=== PATIENT | male | born 1945 | race Caucasian/White ===

== ENCOUNTER 2017-10-05 11:09 | Inpatient (IN) | payer MEDICARE ==
--- NOTE | 2017-10-05 11:31 | ED Physician Documentation ---
History of Present Illness - Stated complaint Stated Complaint: DIFFICULTY BREATHING - Chief complaint Chief Complaint: Resp - Additonal information Additional information: hx from pt 71 male sick for 5 days with cough and diarrhea very SOA hypoxic upon arrival no travel no sick contacts no recent hospitalization Review of Systems Constitutional: reports: Fatigue. denies: Fever, Chills Cardiac: denies: Chest pain / pressure Respiratory: reports: Dyspnea, Cough GI: reports: Diarrhea. denies: Abdominal Pain, Nausea, Vomiting Endocrine: denies: Easy bruising / bleeding Immunocompromised: denies: Immunocompromised PD PAST MEDICAL HISTORY - Past Medical History Cardiovascular: Hypertension Respiratory: Sleep apnea, CPAP use Endocrine/Autoimmune: None GI: None : None HEENT: None Psych: None Musculoskeletal: None Derm: None - Past Surgical History Ortho: Other HEENT: Cataracts - Present Medications Home Medications: Ambulatory Orders Medication Instructions Recorded Confirmed Lisinopril [Zestril] 20 mg PO 06/16/16 Aspirin 10/05/17 Pravastatin [Pravachol] 10/05/17 - Allergies Allergies/Adverse Reactions: Allergies Allergy/AdvReac Type Severity Reaction Status Date / Time No Known Drug Allergies Allergy Verified 10/05/17 11:19 PD ED PE NORMAL - Vitals Vital signs reviewed: Yes - HEENT HEENT: Atraumatic - Neck Neck: Supple, no meningeal sign - Cardiac Cardiac: RRR (tachy) - Respiratory Respiratory: Other (dec red, tachypneic) - Abdomen Abdomen: Soft, Non tender - Extremities Extremities: No deformity, No edema, No calf tenderness / cord - Neuro Neuro: Alert and oriented X 3 Results - Vitals Vitals: Vital Signs - 24 hr 10/05/17 10/05/17 10/05/17 11:16 11:45 14:11 Temperature 36.6 C 37.2 C Heart Rate 105 H 96 103 H Respiratory 25 H 21 28 H Rate Blood Pressure 108/43 L 104/45 L 110/40 L O2 Saturation 85 L 96 94 10/05/17 16:22 Temperature Heart Rate 108 H Respiratory 25 H Rate Blood Pressure 107/54 L O2 Saturation 96 Oxygen O2 Source Room air Oxygen Flow Rate 4 - EKG (time done) 1126 Rate: Rate (enter#) (94) Rhythm: NSR QRS: Poor R wave progression Ischemia: Normal ST segments. No: ST elevation c/w ischemia - Labs Labs: Laboratory Tests 10/05/17 10/05/17 10/05/17 11:24 11:24 11:24 WBC 14.7 H RBC 4.50 L Hgb 14.9 Hct 42.7 MCV 95.0 H MCH 33.0 H MCHC 34.8 RDW 13.5 Plt Count 258 MPV 7.9 Neut # Not Reportable Lymph # Not Reportable Barber # Not Reportable Eos # Not Reportable Baso # Not Reportable Absolute Nucleated RBC Not Reportable Total Counted 100 Band Neuts % (Manual) 0 Abnorm Lymph % (Manual) 0 Nucleated RBC % Not Reportable Neutrophils # (Manual) 11.8 H Lymphocytes # (Manual) 1.6 Monocytes # (Manual) 1.2 H Eosinophils # (Manual) 0.0 Basophils # (Manual) 0.1 Differential Comment MANUAL DIFFERENTIAL Manual Slide Review Indicated Platelet Estimate NORMAL (130-450,000) Platelet Morphology NORMAL APPEARANCE RBC Morph Micro Appear NORMAL APPEARANCE Sodium 134 L Potassium 3.8 Chloride 100 L Carbon Dioxide 24 Anion Gap 10.0 BUN 44 H Creatinine 2.3 H Estimated GFR (MDRD) 28 L Glucose 132 H Lactic Acid Calcium 8.8 Troponin I B-Natriuretic Peptide 141 H Influenza A (Rapid) Influenza B (Rapid) 10/05/17 10/05/17 10/05/17 11:24 11:24 12:07 WBC RBC Hgb Hct MCV MCH MCHC RDW Plt Count MPV Neut # Lymph # Barber # Eos # Baso # Absolute Nucleated RBC Total Counted Band Neuts % (Manual) Abnorm Lymph % (Manual) Nucleated RBC % Neutrophils # (Manual) Lymphocytes # (Manual) Monocytes # (Manual) Eosinophils # (Manual) Basophils # (Manual) Differential Comment Manual Slide Review Platelet Estimate Platelet Morphology RBC Morph Micro Appear Sodium Potassium Chloride Carbon Dioxide Anion Gap BUN Creatinine Estimated GFR (MDRD) Glucose Lactic Acid 0.3 L Calcium Troponin I 0.09 B-Natriuretic Peptide Influenza A (Rapid) Negative Influenza B (Rapid) Negative - Rads (name of study) CXR Radiology: See rad report (NACPD) CT chest Radiology: See rad report (LLL opacities) PD MEDICAL DECISION MAKING - ED course ED course: acute illneess with cough SOA and diarrhea hypoxic CXR NACPD renal insuiff not new but GFR < 30 precluded CTA to eval for PE as cause no isotope for VQ per [employer] tech will get a non con CT gave a dose of lovenox to cover possibility of PE until work up can be completed CT non con shows LL opacity concerning for pna so will start ab and admit still rec pt get VQ as PE can also cause opacities d/w Dr Styles at 1550 Departure - Departure Disposition: 66 [facility] DC/Xfer Clinical Impression: Hypoxia Pneumonia Qualifiers: Pneumonia type: due to unspecified organism Laterality: left Lung location: lower lobe of lung Qualified Code(s): J18.1 - Lobar pneumonia, unspecified organism Chronic renal insufficiency Qualifiers: Chronic kidney disease stage: unspecified stage Qualified Code(s): N18.9 - Chronic kidney disease, unspecified Condition: Good
[2017-10-05 11:54] LABS: BASOPHILS % (AUTO) 0.5 %; EOSINOPHILS % (AUTO) 0.1 %; HGB - HEMOGLOBIN 14.9 g/dL (14.0-18.0); LYMPHOCYTES % (AUTO) 6.2 %; MEAN CORPUSCULAR HGB CONC 34.8 g/dL (32.0-36.0); MEAN PLATELET VOLUME 7.9 fL (7.4-11.4); MONOCYTES % (AUTO) 11.6 %; NEUTROPHILS % (AUTO) 81.6 %; PLT - PLATELET COUNT 258 10^3/uL (130-450); RED CELL DISTRIBUTION WIDTH 13.5 % (12.0-15.0); WHITE BLOOD COUNT 14.7 x10^3/uL (4.8-10.8)
[2017-10-05 12:05] LABS: CALCIUM 8.8 mg/dL (8.5-10.3); CREATININE 2.3 mg/dL (0.6-1.2)
[2017-10-05 12:27] LABS: ABNORMAL LYMPHS % (MANUAL) 0 %; BAND NEUTROPHILS % (MANUAL) 0 %
[2017-10-05 12:28] LABS: BASOPHILS # (MANUAL) 0.1 10^3/uL (0-0.1); BASOPHILS % (MANUAL) 1 %; DIFFERENTIAL COMMENT MANUAL DIFFERENTIAL; LYMPHOCYTES # (MANUAL) 1.6 10^3/uL (1.5-3.5); LYMPHOCYTES % (MANUAL) 11 %; MONOCYTES # (MANUAL) 1.2 10^3/uL (0.0-1.0); NEUTROPHILS # (MANUAL) 11.8 10^3/uL (1.5-6.6); NEUTROPHILS % (MANUAL) 80 %; PLATELET ESTIMATE, MANUAL NORMAL (130-450,000) (NORMAL); PLATELET MORPHOLOGY NORMAL APPEARANCE (NORMAL); RBC MORPHOLOGY (MULTIPLE) NORMAL APPEARANCE (NORMAL)
--- NOTE | 2017-10-05 13:18 | XRAY Report ---
EXAM: CHEST RADIOGRAPHY EXAM DATE: 10/05/2017 01:07 PM. CLINICAL HISTORY: Cough hypoxia. COMPARISON: None. TECHNIQUE: 2 views. FINDINGS: Lungs/Pleura: No focal opacities evident. Mild central interstitial prominence. No pleural effusion. No pneumothorax. Hyperinflation. Mediastinum: Heart and mediastinal contours are within normal limits. Other: None. IMPRESSION: No acute cardiopulmonary abnormality. Hyperinflation suggests COPD. [facility] Referring Provider Line: [phone] SITE ID: [id number]
[2017-10-05] MEDS ORDERED: ENOXAPARIN 100 MG/ML SYRINGE SUBQ STA (13:26)
--- NOTE | 2017-10-05 15:08 | CT Preliminary Report ---
Exam: CT CHEST W/O IMPRESSION: 1. COPD. Left lower lobe opacities concerning for infiltrates. 2. No pneumothorax or effusions. 3. Probable reactive mediastinal and hilar adenopathy. No bulky adenopathy. 4. Extensive coronary artery disease. No pericardial effusion or cardiac enlargement. [facility] SITE ID: [id number]
--- NOTE | 2017-10-05 15:14 | CT Report ---
EXAM: CT CHEST EXAM DATE: 10/05/2017 02:30 PM. CLINICAL HISTORY: Hypoxic. COMPARISONS: 10/05/2017. TECHNIQUE: Routine helical CT imaging was performed through the chest. IV contrast: None. Reconstruct ions: Coronal and sagittal. In accordance with CT protocol optimization, one or more of the following dose reduction techniques w ere utilized for this exam: automated exposure control, adjustment of mA and/or KV based on patient s ize, or use of iterative reconstructive technique. FINDINGS: Lungs/Pleura: At least moderate centrilobular and paraseptal emphysema noted. No pneumothorax or effu judy. Patchy left lower lobe opacities best seen on image 4, 63. 2 mm right upper lobe nodule best se en on image 4, 34. No lung mass. Moderate bilateral perihilar bronchial wall thickening. No endobronc hial lesion. Mediastinum: Diffuse atheromatous calcified plaques throughout the thoracic aorta without aneurysmal dilation. No mediastinal hematoma. No cardiac enlargement. Extensive coronary calcifications are pres ent. 1.1 cm subcarinal, 1.2 cm AP window and 1.1 cm right paratracheal nodes are noted. No bulky calixto opathy. No pericardial effusion. 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 No osteoblastic or osteolytic lesions appreciated. Visualized Abdomen: Unremarkable. Other: Homogeneous enhancement of the thyroid gland. No thyroid nodule or mass. No supraclavicular or axillary lymphadenopathy identified. IMPRESSION: 1. COPD. Left lower lobe opacities concerning for infiltrates. 2. No pneumothorax or effusions. 3. Probable reactive mediastinal and hilar adenopathy. No bulky adenopathy. 4. Extensive coronary artery disease. No pericardial effusion or cardiac enlargement. [facility] Referring Provider Line: [phone] SITE ID: [id number]
[2017-10-05] MEDS ORDERED: cefTRIAXone 1 GM in SODIUM CHLORIDE 0.9% MINIBAG 100 ML IV STA (15:35)
[2017-10-05] MEDS ORDERED: AZITHROMYCIN INJ 500 MG in SODIUM CHLORIDE 0.9% 250 ML IV STA (15:36)
[2017-10-05] MEDS ORDERED: ONDANSETRON 4 MG/2 ML VIAL IVP PRN ×2 (16:47→17:46)
[2017-10-05] MEDS ORDERED: ACETAMINOPHEN 325 MG TABLET PO PRN ×2 (16:47→17:46)
[2017-10-05] MEDS ORDERED: SODIUM CHLORIDE FLUSH 0.9% 10 ML SYRINGE IVP PRN ×2 (16:47→17:46)
[2017-10-05] MEDS ORDERED: ZOLPIDEM 5 MG TABLET PO PRN (16:47)
[2017-10-05] MEDS ORDERED: AZITHROMYCIN INJ 500 MG in SODIUM CHLORIDE 0.9% 250 ML IV SCH (17:00)
[2017-10-05] MEDS ORDERED: SODIUM CHLORIDE FLUSH 0.9% 10 ML SYRINGE IVP SCH (17:00)
[2017-10-05] MEDS ORDERED: SODIUM CHLORIDE 0.9% 1,000 ML IV SCH (17:00)
--- NOTE | 2017-10-05 17:26 | HISTORY & PHYSICAL EXAMINATION ---
Chief Complaint - Chief Complaint Chief Complaint: cough, shortness of breath History of Present Illness - Admitted From Admitted From:: ER - History Obtained From History obtained from: Pt - History of Present Illness HPI Comment/Other: Mr. Espino is 71 yrs old male with a PMH significant for HTN, CKD, sleep Apnea with CPAP, cigarette smoker, who present ER complaint of cough with sputum for one week. Pt report he had a slight elevated temperature in home and felt warm. Pt report he had cough with thick and yellow sputum for one week. He state he wait for becoming better but it was not. He report he just quit cigarette smoking. He denies illicit drug and alcohol abuse. CT of chest reveals COPD and left lower lobe opacities concerning for infiltrates. In lab test, pt has elevated WBC, and impaired renal function. Pt was admitted for evaluation and treatment of COPD and pneumonia. History - Past Medical History Cardiovascular: reports: Hypertension Respiratory: reports: Sleep apnea, CPAP use Endocrine/Autoimmune: reports: None GI: reports: None : reports: None HEENT: reports: None Psych: reports: None Musculoskeletal: reports: None Derm: reports: None MRSA Hx?: No - Past Surgical History Ortho: reports: Other HEENT: reports: Cataracts - Family & Social History Family History: Mother: Alive and Well (95 yrs, is still living, no major medical issue), Father: (father on 1983, from colon cancer) Family History Comment/Other: pt with his partner is living on his own home on [address]. Pt is still working at [employer]. pt has three children, two boys and one daughter. Living arrangement: At home Living Situation: With spouse/s.o. Social History Notes: pt report he just quitted cigarette smoking. Pt denies acohol and drug abuse. - Substance History Use: Uses substance without health or social issues: Tobacco - POLST Patient has POLST: No POLST Status: Full Code Meds/Allgy - Home Medications Home Medications: Ambulatory Orders Medication Instructions Recorded Confirmed Lisinopril [Zestril] 20 mg PO 06/16/16 Aspirin 10/05/17 Pravastatin [Pravachol] 10/05/17 - Allergies Allergies/Adverse Reactions: Allergies Allergy/AdvReac Type Severity Reaction Status Date / Time No Known Drug Allergies Allergy Verified 10/05/17 11:19 Review of Systems - Constitutional Constitutional: reports: Fever, Night sweats. denies: Fatigue, Chills, Malaise , Weakness, Poor appetite, Diaphoresis, Weight gain, Weight loss - Eyes Eyes: denies: Pain, Irritation, Amaurosis, Blurred vision, Spots in vision, Field loss, Vision loss, Dipolpia, Corrective lenses - Ears, Nose & Throat Ears, Nose & Throat: denies: Ear pain, Hearing loss, Hearing aids, Tinnitus, Vertigo, Nasal pain, Nasal discharge, Nosebleeds, Postnasal drainage, Sore throat, Bleeding gums - Cardiovascular Cariovascular: denies: Irregular heart rate, Palpitations, Chest pain, Edema, Lightheadedness, Syncope, Exertional dyspnea, Decr. exercise tolerance - Respiratory Respiratory: reports: Cough, Sputum production, SOB with exertion. denies: Wheezing, Snoring, Hemoptysis, Orthopnea, SOB at rest, Apnea, Stridor, Pleuritic pain - Gastrointestinal Gastrointestinal: denies: Abdominal pain, Abdominal distention, Constipation, Diarrhea, Change in bowel habits, Rectal bleeding, Black stools, Bloody stools, Nausea, Vomiting, Jesus blood emesis, Coffee grounds emesis, Reflux/heartburn, Poor appetite - Genitourinary Genitourinary: denies: Dysuria, Frequency, Urgency, Hematuria, Incontinence, Flank pain, Nocturia, Urethral discharge - Musculoskeletal Musculoskeletal: denies: Muscle pain, Back pain, Muscle aches, Stiffness, Limited range of motion, Muscle weakness, Gout, Joint pain - Integumentary Integumentary: denies: Rash, Pruritis, Lesions, Dryness, Lumps, Acne, Pigment changes, Nail changes - Neurological Neurological: denies: General weakness, Focal weakness, Headache, Dizziness, Numbness, Memory problems, Pre-existing deficit, Abnormal gait, Seizures, Incoordination, Slurred speech - Psychiatric Psychiatric: denies: Depression, Anxiety, Suicidal, Delusions, Hallucinations, Homicidal - Endocrine Endocrine: denies: Polyuria, Polydypsia, Polyphagia, Intolerance to cold, Intolerance to heat - Hematologic/Lymphatic Hematologic/Lymphatic: denies: Anemia, Bruising, Petechiae, Blood clots, Lymphadenopathy, Bleeding tendencies, Recurrent infections Exam - Vital Signs Reviewed Vital Signs: Yes Vital Signs: Vital Signs x48h Temp Pulse Resp BP Pulse Ox 10/05/17 17:13 36.6 C 106 H 16 104/40 L 100 10/05/17 16:22 108 H 25 H 107/54 L 96 10/05/17 14:11 103 H 28 H 110/40 L 94 10/05/17 11:45 37.2 C 96 21 104/45 L 96 10/05/17 11:16 36.6 C 105 H 25 H 108/43 L 85 L - Physical Exam General Appearance: positive: No acute distress, Alert. negative: Lethargic Eyes Bilateral: positive: Normal inspection, PERRL, No lid inflammation, Conjunctivae nml ENT: positive: ENT inspection nml, Pharynx nml, No signs of dehydration. negative: Purulent nasal drainage, Pharyngeal erythema, Oral lesions Neck: positive: Nml inspection, Thyroid nml, No JVD, Trachea midline. negative : Thyromegaly, Lymphadenopathy (R), Lymphadenopathy (L), Stiff neck, Swelling/ bruising, Tracheal deviation Respiratory: positive: Chest non-tender, No respiratory distress, Other (left cracker on basiliar of lung). negative: Wheezes, Rales Cardiovascular: positive: Regular rate & rhythm, No murmur, No gallop. negative : Irregularly irregular, Extrasystoles, Tachycardia, Bradycardia, Systolic murmur, Diastolic murmur Peripheral Pulses: positive: 2+ Abdomen: positive: Non-tender, No organomegaly, Nml bowel sounds, No distention. negative: Tenderness, Guarding, Rebound Back: positive: Nml inspection. negative: CVA tenderness (R), CVA tenderness (L ) Skin: positive: Color nml, Warm, Dry. negative: Cyanosis, Diaphoresis, Pallor Extremities: positive: Non-tender, Full ROM, Nml appearance. negative: Calf tenderness, Joint swelling, Gracia's sign/cords Neurologic/Psychiatric: positive: Oriented x3, Sensation nml. negative: Weakness, Sensory loss, Facial droop, Slurred/abnml speech, Depressed mood/ affect Conclusion/Plan - Problem List (1) Pneumonia Conclusion/Plan: CXR reveals left pneumonia, pt report lower degree fever at home, cough with sputum for one week, cigarette smoker, pt is from home treat with Rocephin, and Azithyomycin follow up blood culture order sputum culture, will follow up breathing treatment as needed O2 supplement NC as needed Qualifiers: Pneumonia type: due to unspecified organism Laterality: left Lung location: lower lobe of lung Qualified Code(s): J18.1 - Lobar pneumonia, unspecified organism (2) COPD (chronic obstructive pulmonary disease) Conclusion/Plan: CXR and CT of chest reveals COPD, cigarette smoker for many years, cough with yellow and thickening sputum Duoneb lower dosage of prednisone 20 mg RT consult, supplement of O2 with NC as needed (3) Chronic renal insufficiency Conclusion/Plan: pt report he has hx of CKD. hydration with gently IVF avoid nephr toxical agents daily lab Qualifiers: Chronic kidney disease stage: unspecified stage Qualified Code(s): N18.9 - Chronic kidney disease, unspecified (4) HTN (hypertension) Conclusion/Plan: pt has hx of HTN, now pt's BP is at lower side. Hold home BP IVF 100cc/h, with 500ml bolus vital monitor (5) Current smoking status unknown Conclusion/Plan: pt state he just quit, encourage pt continue cease the smoking (6) DVT prophylaxis Conclusion/Plan: SCD and Heparin (7) Full code status Conclusion/Plan: pt request full code - Lab Results Fish Bones: 10/06/17 05:00 10/06/17 05:00 Core Measures - Anticipated LOS I expect patient to be DC'd or transferred within 96 hours.: Yes - DVT/VTE - Prophylaxis VTE/DVT Device ordered at admit?: Yes VTE/DVT Prophylaxis med ordered at admit?: Yes
[2017-10-05] MEDS: NICOTINE 14 MG PATCH TOP SCH (19:21)
[2017-10-05] MEDS: guaiFENesin 600 MG TABLET PO SCH (19:25)
[2017-10-05] MEDS: SODIUM CHLORIDE 0.9% 1,000 ML IV SCH (19:26)
[2017-10-05] MEDS: ZOLPIDEM 5 MG TABLET PO PRN (21:57)
[2017-10-06] MEDS: SODIUM CHLORIDE FLUSH 0.9% 10 ML SYRINGE IVP SCH ×3 (02:45→17:35)
[2017-10-06 05:27] LABS: BASOPHILS # (AUTO) 0.1 10^3/uL (0.0-0.1); BASOPHILS % (AUTO) 0.6 %; EOSINOPHILS % (AUTO) 0.1 %; HGB - HEMOGLOBIN 12.7 g/dL (14.0-18.0); LYMPHOCYTES % (AUTO) 8.6 %; MEAN CORPUSCULAR HEMOGLOBIN 32.5 pg (27.0-31.0); MEAN CORPUSCULAR HGB CONC 33.9 g/dL (32.0-36.0); MEAN CORPUSCULAR VOLUME 95.8 fL (80.0-94.0); MEAN PLATELET VOLUME 7.9 fL (7.4-11.4); MONOCYTES # (AUTO) 1.7 10^3/uL (0.0-1.0); MONOCYTES % (AUTO) 15.1 %; NEUTROPHILS # (AUTO) 8.7 10^3/uL (1.5-6.6); NEUTROPHILS % (AUTO) 75.6 %; PLT - PLATELET COUNT 240 10^3/uL (130-450); RED BLOOD COUNT 3.92 10^6/uL (4.70-6.10); WHITE BLOOD COUNT 11.5 x10^3/uL (4.8-10.8)
[2017-10-06 05:44] LABS: ALBUMIN/GLOBULIN RATIO 0.9 (1.0-2.2); BILIRUBIN,TOTAL 0.7 mg/dL (0.2-1.0); CALCIUM 8.1 mg/dL (8.5-10.3); CREATININE 2.3 mg/dL (0.6-1.2); MAGNESIUM 1.9 mg/dL (1.7-2.8); TOTAL PROTEIN 6.5 g/dL (6.7-8.2)
[2017-10-06] MEDS: FAMOTIDINE 20 MG TABLET PO SCH (08:14)
[2017-10-06] MEDS: NICOTINE 14 MG PATCH TOP SCH (08:15)
[2017-10-06] MEDS: guaiFENesin 600 MG TABLET PO SCH ×2 (08:15→21:22)
[2017-10-06] MEDS: HEPARIN 5,000 UNIT/ML VIAL SUBQ SCH ×2 (08:15→21:24)
[2017-10-06] MEDS: POLYETHYLENE GLYCOL 3350 17 GM PACKET PO SCH (08:17)
[2017-10-06] MEDS: cefTRIAXone 1 GM in SODIUM CHLORIDE 0.9% MINIBAG 100 ML IV SCH (08:20)
[2017-10-06] MEDS ORDERED: SODIUM CHLORIDE 0.9% 500 ML IV ONE ×2 (08:38→22:00)
[2017-10-06] MEDS ORDERED: POLYETHYLENE GLYCOL 3350 17 GM PACKET PO SCH (09:00)
[2017-10-06] MEDS ORDERED: HEPARIN 5,000 UNIT/ML VIAL SUBQ SCH (09:00)
[2017-10-06] MEDS ORDERED: FAMOTIDINE 20 MG TABLET PO SCH (09:00)
[2017-10-06] MEDS ORDERED: cefTRIAXone 1 GM VIAL IVP SCH ×2 (09:00)
[2017-10-06] MEDS: AZITHROMYCIN INJ 500 MG in SODIUM CHLORIDE 0.9% 250 ML IV SCH (09:27)
[2017-10-06] MEDS: SODIUM CHLORIDE 0.9% 1,000 ML IV SCH ×2 (09:32→19:01)
[2017-10-06] MEDS: predniSONE 20 MG TABLET PO SCH (11:25)
[2017-10-06] MEDS: IPRATROPIUM/ALBUTEROL 3 ML NEB INH PRN (11:36)
[2017-10-06] MEDS ORDERED: SODIUM CHLORIDE 0.9% 1,000 ML IV SCH (12:00)
--- NOTE | 2017-10-06 14:15 | PROVIDER PROGRESS NOTE ---
Subjective - Prog Note Date Prog Note Date: 10/06/17 - Subjective Pt reports feeling: Improved Subjective: Pt feel better than yesterday. Pt denies fever, chill. Cough is reduced. No chest pain, headache. Current Medications - Current Medications Current Medications: Active Medications Acetaminophen (Tylenol) 650 mg PO Q4HR PRN PRN Reason: Pain 1 to 4 Last Admin: 10/06/17 05:27 Dose: 650 mg Albuterol/Ipratropium (Duoneb) 3 ml INH Q4HR PRN PRN Reason: Wheezing Last Admin: 10/06/17 11:36 Dose: 3 ml Famotidine (Pepcid) 20 mg PO DAILY [facility] Last Admin: 10/06/17 08:14 Dose: 20 mg Guaifenesin (Mucinex) 600 mg PO BID [facility] Last Admin: 10/06/17 08:15 Dose: 600 mg Heparin Sodium (Porcine) () 5,000 unit SUBQ BID [facility] Last Admin: 10/06/17 08:15 Dose: 5,000 unit Azithromycin 500 mg/ Sodium (Chloride) 250 mls @ 250 mls/hr IV DAILY [facility] Last Infusion: 10/06/17 10:30 Dose: Infused Ceftriaxone Sodium 1 gm/ (Sodium Chloride) 100 mls @ 200 mls/hr IV DAILY [facility] Last Infusion: 10/06/17 09:00 Dose: Infused Sodium Chloride (Normal Saline 0.9%) 1,000 mls @ 100 mls/hr IV .Q10H [facility] Stop: 10/06/17 21:59 Nicotine (Nicoderm) 1 patch TOP DAILY [facility] Last Admin: 10/06/17 08:15 Dose: Not Given Ondansetron HCl (Zofran Inj) 4 mg IVP Q6HR PRN PRN Reason: Nausea / Vomiting Polyethylene Glycol (Miralax) 17 gm PO DAILY [facility] Last Admin: 10/06/17 08:17 Dose: 17 gm Prednisone (Deltasone) 20 mg PO DAILYWM [facility] Last Admin: 10/06/17 11:25 Dose: 20 mg Sodium Chloride (Normal Saline Flush 0.9%) 10 ml IVP PRN PRN PRN Reason: NEEDED PER PROVIDER ORDERS Sodium Chloride (Normal Saline Flush 0.9%) 10 ml IVP 0100,0900,1700 [facility] Last Admin: 10/06/17 08:20 Dose: Not Given Zolpidem Tartrate (Ambien) 5 mg PO QPM PRN PRN Reason: Insomnia Last Admin: 10/05/17 21:57 Dose: 5 mg Lisinopril [Zestril] 20 mg PO 06/16/16 Aspirin 10/05/17 Pravastatin [Pravachol] 10/05/17 Objective - Vital Signs/Intake & Output Reviewed Vital Signs: Yes Vital Signs: Vital Signs x48h Temp Pulse Pulse Resp BP Pulse Ox 10/06/17 12:14 37.0 C 100 22 106/46 L 96 10/06/17 11:38 84 20 10/06/17 08:00 37.0 C 85 22 100/46 L 95 10/06/17 06:23 37.1 C Intake & Output: Intake & Output 10/03/17 10/04/17 10/05/17 10/06/17 23:59 23:59 23:59 23:59 Intake Total 600 2340 Balance 600 2340 - Objective General Appearance: positive: No acute distress, Alert. negative: Lethargic Eyes Bilateral: positive: Normal inspection, PERRL, No lid inflammation, Conjunctivae nml ENT: positive: ENT inspection nml, Pharynx nml, No signs of dehydration. negative: Purulent nasal drainage, Pharyngeal erythema, Oral lesions Neck: positive: Nml inspection, Thyroid nml, No JVD, Trachea midline. negative : Thyromegaly, Lymphadenopathy (R), Lymphadenopathy (L), Stiff neck, Swelling/ bruising, Tracheal deviation Respiratory: positive: Chest non-tender, No respiratory distress, Wheezes. negative: Rales, Rhonchi Cardiovascular: positive: Regular rate & rhythm, No murmur, No gallop. negative : Irregularly irregular, Extrasystoles, Tachycardia, Bradycardia, Systolic murmur, Diastolic murmur Peripheral Pulses: 2+ Radial (R), 2+ Radial (L), 2+ Dorsalis pedis (R), 2+ Dorsalis pedis (L) Abdomen: positive: Non-tender, No organomegaly, Nml bowel sounds, No distention. negative: Tenderness, Guarding, Rebound Back: positive: Nml inspection. negative: CVA tenderness (R), CVA tenderness (L ) Skin: positive: Color nml, No rash, Warm, Dry. negative: Cyanosis, Diaphoresis , Pallor Extremities: positive: Non-tender, Full ROM, Nml appearance. negative: Calf tenderness, Joint swelling, Gracia's sign/cords Neurologic/Psychiatric: positive: Oriented x3, Sensation nml. negative: Weakness, Sensory loss, Facial droop, Slurred/abnml speech, Depressed mood/ affect - Lab Results Fish Bones: 10/06/17 05:00 10/06/17 05:00 Other Labs: Lab Results x24hrs 10/06/17 10/06/17 Range/Units 05:00 05:00 WBC 11.5 H (4.8-10.8) x10^3/uL RBC 3.92 L (4.70-6.10) 10^6/uL Hgb 12.7 L (14.0-18.0) g/dL Hct 37.5 L (42.0-52.0) % MCV 95.8 H (80.0-94.0) fL MCH 32.5 H (27.0-31.0) pg MCHC 33.9 (32.0-36.0) g/dL RDW 14.0 (12.0-15.0) % Plt Count 240 (130-450) 10^3/uL MPV 7.9 (7.4-11.4) fL Neut # 8.7 H (1.5-6.6) 10^3/uL Lymph # 1.0 L (1.5-3.5) 10^3/uL [place] # 1.7 H (0.0-1.0) 10^3/uL Eos # 0.0 (0.0-0.7) 10^3/uL Baso # 0.1 (0.0-0.1) 10^3/uL Absolute Nucleated RBC 0.00 x10^3/uL Nucleated RBC % 0.0 /100WBC Sodium 137 (135-145) mmol/L Potassium 4.1 (3.5-5.0) mmol/L Chloride 104 (101-111) mmol/L Carbon Dioxide 25 (21-32) mmol/L Anion Gap 8.0 (6-13) BUN 46 H (6-20) mg/dL Creatinine 2.3 H (0.6-1.2) mg/dL Estimated GFR (MDRD) 28 L (>89) Glucose 116 H (70-100) mg/dL Calcium 8.1 L (8.5-10.3) mg/dL Magnesium 1.9 (1.7-2.8) mg/dL Total Bilirubin 0.7 (0.2-1.0) mg/dL AST 22 (10-42) IU/L ALT 16 (10-60) IU/L Alkaline Phosphatase 42 (42-121) IU/L Total Protein 6.5 L (6.7-8.2) g/dL Albumin 3.0 L (3.2-5.5) g/dL Globulin 3.5 (2.1-4.2) g/dL Albumin/Globulin Ratio 0.9 L (1.0-2.2) Assessment/Plan - Problem List (1) Pneumonia Impression: (1) Pneumonia Conclusion/Plan: pt feel better, WBC is down. 96% Sats at 2 liter of O2 continue antibiotics, follow up sputum culture breathing treatment as needed O2 supplement NC as needed CXR reveals left pneumonia, pt report lower degree fever at home, cough with sputum for one week, cigarette smoker, pt is from home treat with Rocephin, and Azithyomycin follow up blood culture order sputum culture, will follow up breathing treatment as needed O2 supplement NC as needed (2) COPD (chronic obstructive pulmonary disease) Conclusion/Plan: improved, continue Duoneb and Prednisone CXR and CT of chest reveals COPD, cigarette smoker for many years, cough with yellow and thickening sputum Duoneb lower dosage of prednisone 20 mg RT consult, supplement of O2 with NC as needed (3) Chronic renal insufficiency Conclusion/Plan: stable, hydration with gently IVF avoid nephr toxical agents pt report he has hx of CKD. hydration with gently IVF avoid nephr toxical agents daily lab Qualifiers: Chronic kidney disease stage: unspecified stage Qualified Code(s): N18.9 - Chronic kidney disease, unspecified (4) HTN (hypertension) Conclusion/Plan: IVF, continue vital monitor, hold BP home meds pt has hx of HTN, now pt's BP is at lower side. Hold home BP IVF 100cc/h, with 500ml bolus vital monitor (5) Current smoking status unknown Conclusion/Plan: pt state he just quit, encourage pt continue cease the smoking Qualifiers: Pneumonia type: due to unspecified organism Laterality: left Lung location: lower lobe of lung Qualified Code(s): J18.1 - Lobar pneumonia, unspecified organism (3) Chronic renal insufficiency Qualifiers: Chronic kidney disease stage: unspecified stage Qualified Code(s): N18.9 - Chronic kidney disease, unspecified
[2017-10-06] MEDS: SACCHAROMYCES BOULARDII 250 MG CAPSULE PO SCH (17:35)
[2017-10-06] MEDS: ZOLPIDEM 5 MG TABLET PO PRN (21:22)
[2017-10-07] MEDS: SODIUM CHLORIDE 0.9% 1,000 ML IV SCH ×2 (02:00→16:39)
[2017-10-07] MEDS: SODIUM CHLORIDE FLUSH 0.9% 10 ML SYRINGE IVP SCH ×4 (02:00→23:38)
[2017-10-07 05:55] LABS: BASOPHILS % (AUTO) 0.3 %; EOSINOPHILS % (AUTO) 0.2 %; HGB - HEMOGLOBIN 12.3 g/dL (14.0-18.0); LYMPHOCYTES # (AUTO) 1.1 10^3/uL (1.5-3.5); MEAN CORPUSCULAR HEMOGLOBIN 33.1 pg (27.0-31.0); MEAN CORPUSCULAR HGB CONC 34.1 g/dL (32.0-36.0); MEAN CORPUSCULAR VOLUME 97.2 fL (80.0-94.0); MEAN PLATELET VOLUME 7.6 fL (7.4-11.4); MONOCYTES # (AUTO) 1.1 10^3/uL (0.0-1.0); MONOCYTES % (AUTO) 10.7 %; NEUTROPHILS # (AUTO) 8.3 10^3/uL (1.5-6.6); NEUTROPHILS % (AUTO) 78.8 %; PLT - PLATELET COUNT 252 10^3/uL (130-450); RED BLOOD COUNT 3.72 10^6/uL (4.70-6.10); RED CELL DISTRIBUTION WIDTH 14.1 % (12.0-15.0); WHITE BLOOD COUNT 10.6 x10^3/uL (4.8-10.8)
[2017-10-07 06:06] LABS: ALBUMIN 2.7 g/dL (3.2-5.5); ALBUMIN/GLOBULIN RATIO 0.8 (1.0-2.2); BILIRUBIN,TOTAL 0.4 mg/dL (0.2-1.0); CALCIUM 8.1 mg/dL (8.5-10.3)
[2017-10-07] MEDS: ASPIRIN CHEW 81 MG TABLET PO SCH (08:10)
[2017-10-07] MEDS: predniSONE 20 MG TABLET PO SCH (08:10)
[2017-10-07] MEDS: guaiFENesin 600 MG TABLET PO SCH ×2 (08:10→20:27)
[2017-10-07] MEDS: SACCHAROMYCES BOULARDII 250 MG CAPSULE PO SCH ×2 (08:10→16:38)
[2017-10-07] MEDS: HEPARIN 5,000 UNIT/ML VIAL SUBQ SCH ×2 (08:14→20:27)
[2017-10-07] MEDS: cefTRIAXone 1 GM in SODIUM CHLORIDE 0.9% MINIBAG 100 ML IV SCH (08:14)
[2017-10-07] MEDS: FAMOTIDINE 20 MG TABLET PO SCH (08:15)
[2017-10-07] MEDS: AZITHROMYCIN INJ 500 MG in SODIUM CHLORIDE 0.9% 250 ML IV SCH (09:07)
[2017-10-07] MEDS: NICOTINE 14 MG PATCH TOP SCH (09:31)
[2017-10-07] MEDS: POLYETHYLENE GLYCOL 3350 17 GM PACKET PO SCH (09:32)
[2017-10-07] MEDS: IPRATROPIUM/ALBUTEROL 3 ML NEB INH PRN (10:51)
--- NOTE | 2017-10-07 11:54 | PROVIDER PROGRESS NOTE ---
Subjective - Prog Note Date Prog Note Date: 10/07/17 - Subjective Pt reports feeling: Improved Subjective: pt report he feel better, breath is better, cough is better also. Pt denies fever, chill, CP. Current Medications - Current Medications Current Medications: Active Medications Acetaminophen (Tylenol) 650 mg PO Q4HR PRN PRN Reason: Pain 1 to 4 Last Admin: 10/06/17 05:27 Dose: 650 mg Albuterol/Ipratropium (Duoneb) 3 ml INH Q4HR PRN PRN Reason: Wheezing Last Admin: 10/07/17 10:51 Dose: 3 ml Aspirin (St Jamie Aspirin) 81 mg PO DAILY [facility] Last Admin: 10/07/17 08:10 Dose: 81 mg Azithromycin (Zithromax) 250 mg PO DAILY [facility] Famotidine (Pepcid) 20 mg PO DAILY [facility] Last Admin: 10/06/17 08:14 Dose: 20 mg Guaifenesin (Mucinex) 600 mg PO BID [facility] Last Admin: 10/07/17 08:10 Dose: 600 mg Heparin Sodium (Porcine) () 5,000 unit SUBQ BID [facility] Last Admin: 10/07/17 08:14 Dose: 5,000 unit Ceftriaxone Sodium 1 gm/ (Sodium Chloride) 100 mls @ 200 mls/hr IV DAILY [facility] Last Infusion: 10/07/17 08:50 Dose: Infused Sodium Chloride (Normal Saline 0.9%) 1,000 mls @ 83.333 mls/hr IV .Q12H [facility] Last Infusion: 10/07/17 06:13 Dose: 83.333 mls/hr Nicotine (Nicoderm) 1 patch TOP DAILY [facility] Last Admin: 10/07/17 09:31 Dose: Not Given Ondansetron HCl (Zofran Inj) 4 mg IVP Q6HR PRN PRN Reason: Nausea / Vomiting Polyethylene Glycol (Miralax) 17 gm PO DAILY [facility] Last Admin: 10/07/17 09:32 Dose: Not Given Prednisone (Deltasone) 20 mg PO DAILYWM [facility] Last Admin: 10/07/17 08:10 Dose: 20 mg Saccharomyces Boulardii (Florastor) 250 mg PO BIDWM [facility] Last Admin: 10/07/17 08:10 Dose: 250 mg Sodium Chloride (Normal Saline Flush 0.9%) 10 ml IVP PRN PRN PRN Reason: NEEDED PER PROVIDER ORDERS Sodium Chloride (Normal Saline Flush 0.9%) 10 ml IVP 0100,0900,1700 ANGIE Last Admin: 10/07/17 09:32 Dose: Not Given Zolpidem Tartrate (Ambien) 5 mg PO QPM PRN PRN Reason: Insomnia Last Admin: 10/06/17 21:22 Dose: 5 mg Aspirin 81 mg PO DAILY 10/05/17 Pravastatin [Pravachol] 10/05/17 Lisinopril/Hydrochlorothiazide [Lisinopril-Hctz 20-25 mg Tab] 1 tab PO DAILY Objective - Vital Signs/Intake & Output Reviewed Vital Signs: Yes Vital Signs: Vital Signs x48h Temp Pulse Pulse Resp BP Pulse Ox 10/07/17 10:52 86 18 10/07/17 08:08 36.6 C 77 22 120/45 L 96 Intake & Output: Intake & Output 10/04/17 10/05/17 10/06/17 10/07/17 23:59 23:59 23:59 23:59 Intake Total 600 5686.332 1047.775 Balance 600 5686.332 1047.775 - Objective General Appearance: positive: No acute distress, Alert. negative: Lethargic Eyes Bilateral: positive: Normal inspection, PERRL, No lid inflammation, Conjunctivae nml ENT: positive: ENT inspection nml, Pharynx nml, No signs of dehydration. negative: Purulent nasal drainage, Pharyngeal erythema, Oral lesions Neck: positive: Nml inspection, Thyroid nml, No JVD, Trachea midline. negative : Thyromegaly, Lymphadenopathy (R), Lymphadenopathy (L), Stiff neck, Carotid bruit, Swelling/bruising, Tracheal deviation Respiratory: positive: Chest non-tender, No respiratory distress, Breath sounds nml. negative: Wheezes, Rales, Rhonchi Cardiovascular: positive: Regular rate & rhythm, No murmur, No gallop. negative : Irregularly irregular, Extrasystoles, Tachycardia, Bradycardia, Systolic murmur, Diastolic murmur Peripheral Pulses: 2+ Radial (R), 2+ Radial (L), 2+ Dorsalis pedis (R), 2+ Dorsalis pedis (L) Abdomen: positive: Non-tender, No organomegaly, Nml bowel sounds, No distention. negative: Tenderness, Guarding, Rebound Back: positive: Nml inspection. negative: CVA tenderness (R), CVA tenderness (L ) Skin: positive: Color nml, No rash, Warm, Dry. negative: Cyanosis, Diaphoresis , Pallor Extremities: positive: Non-tender, Full ROM, Nml appearance. negative: Calf tenderness, Joint swelling, Gracia's sign/cords Neurologic/Psychiatric: positive: Oriented x3, Sensation nml, Mood/affect nml. negative: Sensory loss, Facial droop, Slurred/abnml speech, Depressed mood/ affect - Lab Results Fish Bones: 10/07/17 05:35 10/07/17 05:35 Other Labs: Lab Results x24hrs 10/07/17 10/07/17 10/06/17 Range/Units 05:35 05:35 22:18 WBC 10.6 (4.8-10.8) x10^3/uL RBC 3.72 L (4.70-6.10) 10^6/uL Hgb 12.3 L (14.0-18.0) g/dL Hct 36.2 L (42.0-52.0) % MCV 97.2 H (80.0-94.0) fL MCH 33.1 H (27.0-31.0) pg MCHC 34.1 (32.0-36.0) g/dL RDW 14.1 (12.0-15.0) % Plt Count 252 (130-450) 10^3/uL MPV 7.6 (7.4-11.4) fL Neut # 8.3 H (1.5-6.6) 10^3/uL Lymph # 1.1 L (1.5-3.5) 10^3/uL [place] # 1.1 H (0.0-1.0) 10^3/uL Eos # 0.0 (0.0-0.7) 10^3/uL Baso # 0.0 (0.0-0.1) 10^3/uL Absolute Nucleated RBC 0.01 x10^3/uL Nucleated RBC % 0.0 /100WBC Sodium 139 (135-145) mmol/L Potassium 4.3 (3.5-5.0) mmol/L Chloride 107 (101-111) mmol/L Carbon Dioxide 23 (21-32) mmol/L Anion Gap 9.0 (6-13) BUN 40 H (6-20) mg/dL Creatinine 2.0 H (0.6-1.2) mg/dL Estimated GFR (MDRD) 33 L (>89) Glucose 103 H (70-100) mg/dL Lactic Acid 1.1 (0.5-2.2) mmol/L Calcium 8.1 L (8.5-10.3) mg/dL Total Bilirubin 0.4 (0.2-1.0) mg/dL AST 36 (10-42) IU/L ALT 27 (10-60) IU/L Alkaline Phosphatase 42 (42-121) IU/L Total Protein 6.0 L (6.7-8.2) g/dL Albumin 2.7 L (3.2-5.5) g/dL Globulin 3.3 (2.1-4.2) g/dL Albumin/Globulin Ratio 0.8 L (1.0-2.2) Assessment/Plan - Problem List (1) Pneumonia Impression: (1) Pneumonia Conclusion/Plan: pt feel better, WBC is down to normal. 96% Sats at 2 litter of O2. pt took no oxygen at home no fever, chill. Cough is better controlled plan to d/c tomorrow pt feel better, WBC is down. 96% Sats at 2 liter of O2 continue antibiotics, follow up sputum culture breathing treatment as needed O2 supplement NC as needed CXR reveals left pneumonia, pt report lower degree fever at home, cough with sputum for one week, cigarette smoker, pt is from home treat with Rocephin, and Azithyomycin follow up blood culture order sputum culture, will follow up breathing treatment as needed O2 supplement NC as needed (2) COPD (chronic obstructive pulmonary disease) Conclusion/Plan: lung sound clear, no wheezing continue Duoneb, and lower dosage of Prednisione improved, continue Duoneb and Prednisone CXR and CT of chest reveals COPD, cigarette smoker for many years, cough with yellow and thickening sputum Duoneb lower dosage of prednisone 20 mg RT consult, supplement of O2 with NC as needed (3) Chronic renal insufficiency Conclusion/Plan: improved, reduce Creatinine continue gently IVF, hydration continue lab and vital monitor stable, hydration with gently IVF avoid nephr toxical agents pt report he has hx of CKD. hydration with gently IVF avoid nephr toxical agents daily lab (4) HTN (hypertension) Conclusion/Plan: pt's slight hypotensive is resolved. today is normotensive continue vital monitor IVF, continue vital monitor, hold BP home meds pt has hx of HTN, now pt's BP is at lower side. Hold home BP IVF 100cc/h, with 500ml bolus vital monitor (5) Current smoking status unknown Conclusion/Plan: pt state he just quit, encourage pt continue cease the smoking Qualifiers: Pneumonia type: due to unspecified organism Laterality: left Lung location: lower lobe of lung Qualified Code(s): J18.1 - Lobar pneumonia, unspecified organism (3) Chronic renal insufficiency Qualifiers: Chronic kidney disease stage: unspecified stage Qualified Code(s): N18.9 - Chronic kidney disease, unspecified
[2017-10-07] MEDS: ZOLPIDEM 5 MG TABLET PO PRN (20:42)
[2017-10-08] MEDS: SODIUM CHLORIDE 0.9% 1,000 ML IV SCH (03:59)
[2017-10-08 07:12] LABS: BASOPHILS # (AUTO) 0.1 10^3/uL (0.0-0.1); BASOPHILS % (AUTO) 0.5 %; EOSINOPHILS # (AUTO) 0.1 10^3/uL (0.0-0.7); EOSINOPHILS % (AUTO) 0.4 %; LYMPHOCYTES # (AUTO) 1.5 10^3/uL (1.5-3.5); LYMPHOCYTES % (AUTO) 11.3 %; MEAN CORPUSCULAR HEMOGLOBIN 32.5 pg (27.0-31.0); MEAN CORPUSCULAR HGB CONC 33.7 g/dL (32.0-36.0); MEAN CORPUSCULAR VOLUME 96.7 fL (80.0-94.0); MEAN PLATELET VOLUME 7.6 fL (7.4-11.4); MONOCYTES # (AUTO) 1.2 10^3/uL (0.0-1.0); MONOCYTES % (AUTO) 9.1 %; NEUTROPHILS # (AUTO) 10.5 10^3/uL (1.5-6.6); NEUTROPHILS % (AUTO) 78.7 %; PLT - PLATELET COUNT 303 10^3/uL (130-450); RED BLOOD COUNT 3.99 10^6/uL (4.70-6.10); RED CELL DISTRIBUTION WIDTH 14.1 % (12.0-15.0); WHITE BLOOD COUNT 13.4 x10^3/uL (4.8-10.8)
[2017-10-08 07:27] LABS: ALBUMIN 3.1 g/dL (3.2-5.5); ALBUMIN/GLOBULIN RATIO 0.8 (1.0-2.2); BILIRUBIN,TOTAL 0.4 mg/dL (0.2-1.0); CALCIUM 8.6 mg/dL (8.5-10.3); CREATININE 1.9 mg/dL (0.6-1.2); TOTAL PROTEIN 6.9 g/dL (6.7-8.2)
[2017-10-08] MEDS: POLYETHYLENE GLYCOL 3350 17 GM PACKET PO SCH (07:41)
[2017-10-08] MEDS ORDERED: predniSONE 10 MG TABLET PO SCH (08:00)
[2017-10-08] MEDS: cefTRIAXone 1 GM in SODIUM CHLORIDE 0.9% MINIBAG 100 ML IV SCH (08:17)
[2017-10-08] MEDS: NICOTINE 14 MG PATCH TOP SCH (08:18)
[2017-10-08] MEDS: ASPIRIN CHEW 81 MG TABLET PO SCH (08:19)
[2017-10-08] MEDS: FAMOTIDINE 20 MG TABLET PO SCH (08:19)
[2017-10-08] MEDS: SACCHAROMYCES BOULARDII 250 MG CAPSULE PO SCH ×2 (08:19→16:29)
[2017-10-08] MEDS: guaiFENesin 600 MG TABLET PO SCH ×2 (08:19→21:00)
[2017-10-08] MEDS: SODIUM CHLORIDE FLUSH 0.9% 10 ML SYRINGE IVP SCH ×2 (08:19→14:27)
[2017-10-08] MEDS: HEPARIN 5,000 UNIT/ML VIAL SUBQ SCH ×2 (08:22→20:58)
--- NOTE | 2017-10-08 08:38 | XRAY Preliminary Report ---
Exam: XR CHEST 1 VIEW X-RAY IMPRESSION: Hyperinflated lungs. No focal opacities noted on radiograph. [facility] SITE ID: [id number]
--- NOTE | 2017-10-08 08:38 | XRAY Report ---
EXAM: CHEST RADIOGRAPHY EXAM DATE: 10/08/2017 08:25 AM. CLINICAL HISTORY: Shortness of breath. COMPARISON: 10/05/2017. TECHNIQUE: 1 view. FINDINGS: Lungs/Pleura: Hyperinflated lungs. No focal opacities evident. The previously noted left lower lobe o pacity on CT chest 10/05/2017 is not well appreciated on radiograph. No pleural effusion. No pneumotho rax. Mediastinum: Within exam limitations, the cardiomediastinal contour is normal. Other: None. IMPRESSION: Hyperinflated lungs. No focal opacities noted on radiograph. [facility] Referring Provider Line: [phone] SITE ID: [id number]
[2017-10-08] MEDS ORDERED: ALBUTEROL NEB 2.5 MG/3 ML INH PRN (08:53)
[2017-10-08] MEDS ORDERED: FUROSEMIDE 20 MG/2 ML VIAL IVP SCH (09:00)
[2017-10-08] MEDS ORDERED: methylPREDNISolone SUCCINATE 40 MG/ML VIAL IVP SCH (09:00)
[2017-10-08] MEDS ORDERED: AZITHROMYCIN 250 MG TABLET PO SCH (09:00)
--- NOTE | 2017-10-08 11:41 | PROVIDER PROGRESS NOTE ---
Subjective - Prog Note Date Prog Note Date: 10/08/17 - Subjective Pt reports feeling: Worse Subjective: pt report SOB, but no fever, chill, chest pain. Current Medications - Current Medications Current Medications: Active Medications Acetaminophen (Tylenol) 650 mg PO Q4HR PRN PRN Reason: Pain 1 to 4 Last Admin: 10/06/17 05:27 Dose: 650 mg Albuterol () 2.5 mg INH RTQ4H PRN PRN Reason: Wheezing Albuterol/Ipratropium (Duoneb) 3 ml INH Q4HR PRN PRN Reason: Wheezing Last Admin: 10/07/17 10:51 Dose: 3 ml Aspirin (St Jamie Aspirin) 81 mg PO DAILY [facility] Last Admin: 10/08/17 08:19 Dose: 81 mg Azithromycin (Zithromax) 250 mg PO DAILY [facility] Last Admin: 10/08/17 08:19 Dose: 250 mg Famotidine (Pepcid) 20 mg PO DAILY [facility] Last Admin: 10/08/17 08:19 Dose: 20 mg Guaifenesin (Mucinex) 600 mg PO BID [facility] Last Admin: 10/08/17 08:19 Dose: 600 mg Heparin Sodium (Porcine) () 5,000 unit SUBQ BID [facility] Last Admin: 10/08/17 08:22 Dose: 5,000 unit Ceftriaxone Sodium 1 gm/ (Sodium Chloride) 100 mls @ 200 mls/hr IV DAILY [facility] Last Infusion: 10/08/17 08:47 Dose: Infused Methylprednisolone (Solu-Medrol (40mg Vial)) 40 mg IVP TID [facility] Last Admin: 10/08/17 09:46 Dose: 40 mg Nicotine (Nicoderm) 1 patch TOP DAILY [facility] Last Admin: 10/08/17 08:18 Dose: Not Given Ondansetron HCl (Zofran Inj) 4 mg IVP Q6HR PRN PRN Reason: Nausea / Vomiting Polyethylene Glycol (Miralax) 17 gm PO DAILY [facility] Last Admin: 10/08/17 07:41 Dose: Not Given Saccharomyces Boulardii (Florastor) 250 mg PO BIDWM [facility] Last Admin: 10/08/17 08:19 Dose: 250 mg Sodium Chloride (Normal Saline Flush 0.9%) 10 ml IVP PRN PRN PRN Reason: NEEDED PER PROVIDER ORDERS Sodium Chloride (Normal Saline Flush 0.9%) 10 ml IVP 0100,0900,1700 ANGIE Last Admin: 10/08/17 08:19 Dose: 10 ml Zolpidem Tartrate (Ambien) 5 mg PO QPM PRN PRN Reason: Insomnia Last Admin: 10/07/17 20:42 Dose: 5 mg Aspirin 81 mg PO DAILY 10/05/17 Pravastatin [Pravachol] 10/05/17 Lisinopril/Hydrochlorothiazide [Lisinopril-Hctz 20-25 mg Tab] 1 tab PO DAILY Objective - Vital Signs/Intake & Output Reviewed Vital Signs: Yes Vital Signs: Vital Signs x48h Temp Pulse Resp BP Pulse Ox 10/08/17 08:00 36.5 C 88 16 143/64 H 91 L Intake & Output: Intake & Output 10/05/17 10/06/17 10/07/17 10/08/17 23:59 23:59 23:59 23:59 Intake Total 600 5686.332 2386.388 1164.441 Balance 600 5686.332 2386.388 1164.441 - Objective General Appearance: positive: Alert, Mild distress. negative: Lethargic Eyes Bilateral: positive: Normal inspection, PERRL, No lid inflammation, Conjunctivae nml ENT: positive: ENT inspection nml, Pharynx nml, No signs of dehydration. negative: Purulent nasal drainage, Pharyngeal erythema, Oral lesions Neck: positive: Nml inspection, Thyroid nml, No JVD, Trachea midline. negative : Thyromegaly, Lymphadenopathy (R), Lymphadenopathy (L), Stiff neck, Carotid bruit, Swelling/bruising, Tracheal deviation Respiratory: positive: Chest non-tender, No respiratory distress, Wheezes. negative: Rales, Rhonchi Cardiovascular: positive: Regular rate & rhythm, No murmur, No gallop. negative : Irregularly irregular, Extrasystoles, Tachycardia, Bradycardia, Systolic murmur, Diastolic murmur Peripheral Pulses: 2+ Radial (R), 2+ Radial (L), 2+ Dorsalis pedis (R), 2+ Dorsalis pedis (L) Abdomen: positive: Non-tender, No organomegaly, Nml bowel sounds, No distention. negative: Tenderness, Guarding, Rebound Back: positive: Nml inspection. negative: CVA tenderness (R), CVA tenderness (L ) Skin: positive: Color nml, No rash, Warm, Dry. negative: Cyanosis, Diaphoresis , Pallor Extremities: positive: Non-tender, Full ROM, Nml appearance. negative: Calf tenderness, Joint swelling, Gracia's sign/cords Neurologic/Psychiatric: positive: Oriented x3, Motor nml, Sensation nml, Mood/ affect nml. negative: Sensory loss, Facial droop, Slurred/abnml speech, Depressed mood/affect - Lab Results Fish Bones: 10/08/17 07:00 10/08/17 07:00 Other Labs: Lab Results x24hrs 10/08/17 10/08/17 Range/Units 07:00 07:00 WBC 13.4 H (4.8-10.8) x10^3/uL RBC 3.99 L (4.70-6.10) 10^6/uL Hgb 13.0 L (14.0-18.0) g/dL Hct 38.5 L (42.0-52.0) % MCV 96.7 H (80.0-94.0) fL MCH 32.5 H (27.0-31.0) pg MCHC 33.7 (32.0-36.0) g/dL RDW 14.1 (12.0-15.0) % Plt Count 303 (130-450) 10^3/uL MPV 7.6 (7.4-11.4) fL Neut # 10.5 H (1.5-6.6) 10^3/uL Lymph # 1.5 (1.5-3.5) 10^3/uL [place] # 1.2 H (0.0-1.0) 10^3/uL Eos # 0.1 (0.0-0.7) 10^3/uL Baso # 0.1 (0.0-0.1) 10^3/uL Absolute Nucleated RBC 0.01 x10^3/uL Nucleated RBC % 0.1 /100WBC Sodium 137 (135-145) mmol/L Potassium 4.3 (3.5-5.0) mmol/L Chloride 106 (101-111) mmol/L Carbon Dioxide 21 (21-32) mmol/L Anion Gap 10.0 (6-13) BUN 34 H (6-20) mg/dL Creatinine 1.9 H (0.6-1.2) mg/dL Estimated GFR (MDRD) 35 L (>89) Glucose 91 (70-100) mg/dL Calcium 8.6 (8.5-10.3) mg/dL Total Bilirubin 0.4 (0.2-1.0) mg/dL AST 45 H (10-42) IU/L ALT 43 (10-60) IU/L Alkaline Phosphatase 50 (42-121) IU/L Total Protein 6.9 (6.7-8.2) g/dL Albumin 3.1 L (3.2-5.5) g/dL Globulin 3.8 (2.1-4.2) g/dL Albumin/Globulin Ratio 0.8 L (1.0-2.2) Assessment/Plan - Problem List (1) Pneumonia Impression: (1) Pneumonia Conclusion/Plan: order new CXR which reveal clear lung with COPD hyperflated d/c azith since the meds reach therapeutic dosage. pt feel better, WBC is down to normal. 96% Sats at 2 litter of O2. pt took no oxygen at home no fever, chill. Cough is better controlled plan to d/c tomorrow pt feel better, WBC is down. 96% Sats at 2 liter of O2 continue antibiotics, follow up sputum culture breathing treatment as needed O2 supplement NC as needed CXR reveals left pneumonia, pt report lower degree fever at home, cough with sputum for one week, cigarette smoker, pt is from home treat with Rocephin, and Azithyomycin follow up blood culture order sputum culture, will follow up breathing treatment as needed O2 supplement NC as needed (2) COPD (chronic obstructive pulmonary disease) Conclusion/Plan: lung sound is mild wheezing bilaterally, right more than left add solu-metrol, low dosage add Lasix once daily lab monitor and vital monitor lung sound clear, no wheezing continue Duoneb, and lower dosage of Prednisione improved, continue Duoneb and Prednisone CXR and CT of chest reveals COPD, cigarette smoker for many years, cough with yellow and thickening sputum Duoneb lower dosage of prednisone 20 mg RT consult, supplement of O2 with NC as needed (3) Chronic renal insufficiency Conclusion/Plan: improved, reduce Creatinine continue gently IVF, hydration continue lab and vital monitor stable, hydration with gently IVF avoid nephr toxical agents pt report he has hx of CKD. hydration with gently IVF avoid nephr toxical agents daily lab (4) HTN (hypertension) Conclusion/Plan: pt's slight hypotensive is resolved. today is normotensive continue vital monitor IVF, continue vital monitor, hold BP home meds pt has hx of HTN, now pt's BP is at lower side. Hold home BP IVF 100cc/h, with 500ml bolus vital monitor (5) Current smoking status unknown Conclusion/Plan: pt state he just quit, encourage pt continue cease the smoking (6) shortness of breath order new CXR, which shows unremarkable except COPD hyperflatted add Lasix once add Solu-medrol low dosage continue INH treatment consult with RT vital monitor Qualifiers: Pneumonia type: due to unspecified organism Laterality: left Lung location: lower lobe of lung Qualified Code(s): J18.1 - Lobar pneumonia, unspecified organism (3) Chronic renal insufficiency Qualifiers: Chronic kidney disease stage: unspecified stage Qualified Code(s): N18.9 - Chronic kidney disease, unspecified
[2017-10-08] MEDS: methylPREDNISolone SUCCINATE 40 MG/ML VIAL IVP SCH ×2 (14:26→21:00)
[2017-10-08] MEDS: hydroCHLOROthiazide 25 MG TABLET PO SCH (22:39)
[2017-10-08] MEDS: LISINOPRIL 20 MG TABLET PO SCH (22:39)
[2017-10-09 05:52] LABS: BASOPHILS % (AUTO) 0.4 %; HGB - HEMOGLOBIN 12.6 g/dL (14.0-18.0); LYMPHOCYTES # (AUTO) 0.6 10^3/uL (1.5-3.5); LYMPHOCYTES % (AUTO) 8.5 %; MEAN CORPUSCULAR HEMOGLOBIN 32.5 pg (27.0-31.0); MEAN CORPUSCULAR HGB CONC 33.7 g/dL (32.0-36.0); MEAN CORPUSCULAR VOLUME 96.4 fL (80.0-94.0); MEAN PLATELET VOLUME 7.9 fL (7.4-11.4); MONOCYTES # (AUTO) 0.3 10^3/uL (0.0-1.0); NEUTROPHILS # (AUTO) 5.8 10^3/uL (1.5-6.6); NEUTROPHILS % (AUTO) 87.1 %; PLT - PLATELET COUNT 286 10^3/uL (130-450); RED BLOOD COUNT 3.87 10^6/uL (4.70-6.10); RED CELL DISTRIBUTION WIDTH 13.9 % (12.0-15.0); WHITE BLOOD COUNT 6.7 x10^3/uL (4.8-10.8)
[2017-10-09] MEDS: SODIUM CHLORIDE FLUSH 0.9% 10 ML SYRINGE IVP SCH ×2 (05:56→08:54)
[2017-10-09] MEDS: methylPREDNISolone SUCCINATE 40 MG/ML VIAL IVP SCH (05:57)
[2017-10-09 06:01] LABS: ALBUMIN 2.9 g/dL (3.2-5.5); ALBUMIN/GLOBULIN RATIO 0.8 (1.0-2.2); BILIRUBIN,TOTAL 0.3 mg/dL (0.2-1.0); CREATININE 1.8 mg/dL (0.6-1.2); TOTAL PROTEIN 6.6 g/dL (6.7-8.2)
[2017-10-09 07:50] VITALS: BP 143/65
--- NOTE | 2017-10-09 08:33 | Discharge Plan ---
Discharge Plan Disposition: 01 Home, Self Care Condition: Poor Prescriptions: Albuterol Sulf [Ventolin Hfa Inhaler] 1 - 2 puffs INH Q4HR PRN #1 inhaler PRN Reason: Shortness Of Air/Wheezing Amox/Clav 500/125 [Augmentin] 1 each PO Q12H #10 tablet Ipratropium [Atrovent] 1 puffs INH Q6H PRN #1 inhaler PRN Reason: Wheezing Diet: Regular Activity Restrictions: Activity as Tolerated Shower Restrictions: No (caregiver closely monitor, fall precaution) Instruction Topics: Vaccination Pneumococcal, Pneumonia, Pneumonia Prevent, Pneumonia Tx, COPD, Amoxicillin Clavulanic Acid tablets, Albuterol inhalation solution, Ipratropium aerosol inhaler Additional Instructions or Follow Up instructions: May see PCP in 2-3 days, follow up a elementary school registrar as out-pt. Should symptoms return or worsen, may present ER or call 911 for help. Follow-Up Care: [facility] - Pulmonary No Smoking: If you smoke, Please STOP! Call for help. Follow-up with: ZIYAD SANCHEZ [Primary Care Provider] -
[2017-10-09] MEDS: LISINOPRIL 20 MG TABLET PO SCH (08:48)
[2017-10-09] MEDS: hydroCHLOROthiazide 25 MG TABLET PO SCH (08:48)
[2017-10-09] MEDS: ASPIRIN CHEW 81 MG TABLET PO SCH (08:48)
[2017-10-09] MEDS: SACCHAROMYCES BOULARDII 250 MG CAPSULE PO SCH (08:48)
[2017-10-09] MEDS: guaiFENesin 600 MG TABLET PO SCH (08:49)
[2017-10-09] MEDS: FAMOTIDINE 20 MG TABLET PO SCH (08:52)
[2017-10-09] MEDS: cefTRIAXone 1 GM in SODIUM CHLORIDE 0.9% MINIBAG 100 ML IV SCH (08:54)
[2017-10-09] MEDS: HEPARIN 5,000 UNIT/ML VIAL SUBQ SCH (08:54)
[2017-10-09] MEDS: NICOTINE 14 MG PATCH TOP SCH (08:54)
[2017-10-09] MEDS: POLYETHYLENE GLYCOL 3350 17 GM PACKET PO SCH (08:54)
[2017-10-09] MEDS ORDERED: LISINOPRIL 20 MG TABLET PO SCH (09:00)
[2017-10-09] MEDS ORDERED: NON FORMULARY MED (Lisinopril/Hydrochlorothiazide [Lisinopril-Hctz 20-25 Mg Tab] 1 TAB) PO SCH (09:00)
[2017-10-09] MEDS ORDERED: hydroCHLOROthiazide 25 MG TABLET PO SCH (09:00)
--- NOTE | 2017-10-09 11:04 | DISCHARGE SUMMARY ---
Discharge Summary Discharge Date: 10/09/17 Discharging Provider: PINTO Primary Care Provider: Nathaniel Chavez Condition at Discharge: Poor Discharge Disposition: 01 Home, Self Care Discharge Facility Name: home - DIAGNOSES Admission Diagnoses: (1) Pneumonia (2) COPD (chronic obstructive pulmonary disease) (3) Chronic renal insufficiency (4) HTN (hypertension) (5) Current smoking status unknown Discharge Diagnoses with Status of Each Condition: (1) Pneumonia clear CXR, WBC normal, no fever, chill. Cough is great controlled. Lung sound is clear. continue antibiotics course d/c to home (2) COPD (chronic obstructive pulmonary disease) CT and CXR reveals pt has COPD. pt report he has not diagnosis as COPD as far. Pt did report he just quit cigarette smoking before the admission. pt is prescribe Ipro/albuteral inhaler, advise pt follow up a territory sales manager medical as out- pt. pt was not hypoxic at rest, with room air O2 sats of 92%, but with ambulation sats dropped too 83% on room air. with exertion on 2 lpm, his sats were 93%. I am ordering home O2, room air at rest and at 2 lpm via nasal cannula with exertion to treat his COPD (3) Chronic renal insufficiency great improved, as the pt's baseline, continue be managed by PCP (4) HTN (hypertension) stable (5) Current smoking status unknown pt state he will never smoke cigarette again (6) shortness of breath resolved. - HPI History of Present Illness: Mr. Espino is 71 yrs old male with a PMH significant for HTN, CKD, sleep Apnea with CPAP, cigarette smoker, who present ER complaint of cough with sputum for one week. Pt report he had a slight elevated temperature in home and felt warm. Pt report he had cough with thick and yellow sputum for one week. He state he wait for becoming better but it was not. He report he just quit cigarette smoking. He denies illicit drug and alcohol abuse. CT of chest reveals COPD and left lower lobe opacities concerning for infiltrates. In lab test, pt has elevated WBC, and impaired renal function. Pt was admitted for evaluation and treatment of COPD and pneumonia. - HOSPITAL COURSE Hospital Course: pt was admitted for cough and sickness for a week. Pt was found to have PNA in CT. pt also was found to have COPD in CT and CXR. Pt also develop some SOB. Initially pt's BP was low, now pt's BP is stable. Pt' WBC is normal, Sats of O2 92% at room air. Pt feels great and request discharge to home today.pt is prescribed antibiotics, inhaler, and O2 tank to home. Because pt was only using steroid at lower dosage for two days, pt is not prescribed steroid to home. - ALLERGIES Allergies/Adverse Reactions: Allergies Allergy/AdvReac Type Severity Reaction Status Date / Time No Known Drug Allergies Allergy Verified 10/05/17 11:19 - MEDICATIONS Home Medications: Ambulatory Orders Medication Instructions Recorded Confirmed Aspirin 81 mg PO DAILY 10/05/17 10/06/17 Pravastatin [Pravachol] 10/05/17 Lisinopril/Hydrochlorothiazide 1 tab PO DAILY 10/06/17 10/06/17 [Lisinopril-Hctz 20-25 mg Tab] Albuterol Sulf [Ventolin Hfa 1 - 2 puffs INH Q4HR PRN #1 inhaler 10/09/17 Inhaler] Amox/Clav 500/125 [Augmentin] 1 each PO Q12H #10 tablet 10/09/17 Ipratropium [Atrovent] 1 puffs INH Q6H PRN #1 inhaler 10/09/17 - PHYSICAL EXAM AT DISCHARGE General Appearance: positive: No acute distress, Alert. negative: Lethargic Eyes Bilateral: positive: Normal inspection, PERRL, No lid inflammation, Conjunctivae nml ENT: positive: ENT inspection nml, Pharynx nml, No signs of dehydration. negative: Purulent nasal drainage, Pharyngeal erythema, Oral lesions Neck: positive: Nml inspection, Thyroid nml, No JVD. negative: Trachea midline , Thyromegaly, Lymphadenopathy (R), Lymphadenopathy (L), Stiff neck, Carotid bruit, Swelling/bruising, Tracheal deviation Respiratory: positive: Chest non-tender, No respiratory distress, Breath sounds nml. negative: Wheezes, Rales, Rhonchi Cardiovascular: positive: Regular rate & rhythm, No murmur, No gallop, Irregularly irregular. negative: Extrasystoles, Tachycardia, Bradycardia, Systolic murmur, Diastolic murmur Peripheral Pulses: positive: 2+ Abdomen: positive: Non-tender, No organomegaly, Nml bowel sounds, No distention. negative: Tenderness, Guarding, Rebound Back: positive: Nml inspection. negative: CVA tenderness (R), CVA tenderness (L ) Skin: positive: Color nml, No rash, Warm, Dry. negative: Cyanosis, Diaphoresis , Pallor Extremities: positive: Non-tender, Full ROM, Nml appearance. negative: Calf tenderness, Joint swelling, Gracia's sign/cords Neurologic/Psychiatric: positive: Oriented x3, Motor nml, Sensation nml. negative: Weakness, Sensory loss, Facial droop, Slurred/abnml speech, Depressed mood/affect - LABS Result Diagrams: 10/09/17 05:25 10/09/17 05:25 - FOLLOW UP Follow Up: May see PCP in 2-3 days, follow up a territory sales manager medical as out-pt. Should symptoms return or worsen, may present ER or call 911 for help. - TIME SPENT Time Spent in Discharge (Minutes): 45
== END 2017-10-09 12:33 | disposition home or self-care (01) | DRG 195 ==
LOC: ED 11:09 → MS2 16:47 → ED 17:28
PROVIDERS: ADMIT Nurse Practitioner Gerontology; ATTEND Nurse Practitioner Gerontology
DX: R09.02 Hypoxemia (principal); J18.1 Lobar pneumonia, unspecified organism; J18.9 Pneumonia, unspecified organism; J44.9 Chronic obstructive pulmonary disease, unspecified; I12.9 Hypertensive chronic kidney disease with stage 1 through stage 4 chronic kidney disease, or unspecified chronic kidney disease; N18.9 Chronic kidney disease, unspecified; G47.30 Sleep apnea, unspecified; Z99.81 Dependence on supplemental oxygen; Z87.891 Personal history of nicotine dependence; Z79.82 Long term (current) use of aspirin; Z79.899 Other long term (current) drug therapy
CPT/HCPCS: 36415; 71045; 71046; 71250; 80048; 80053; 83605; 83735; 83880; 84484; 85025; 87040; 87070; 87205; 87275; 87276; 93005; 94640; 94664; 94761; 96365; 96367; 96372; 99283; 99284

== ENCOUNTER 2018-01-09 08:49 | Outpatient (CLI) | payer MEDICARE | END 2018-01-09 08:50 | disposition home or self-care (01) | LOC: RT 08:49 | PROVIDERS: ATTEND Physician Assistant | DX: J44.9 Chronic obstructive pulmonary disease, unspecified (principal); Z87.891 Personal history of nicotine dependence ==

== ENCOUNTER 2018-07-17 03:40 | Inpatient (IN) | payer MEDICARE ==
[2018-07-17] MEDS ORDERED: methylPREDNISolone SUCCINATE 125 MG/2 ML VIAL IVP STA (04:11)
[2018-07-17] MEDS ORDERED: IPRATROPIUM/ALBUTEROL 3 ML NEB INH STA (04:11)
[2018-07-17 04:14] LABS: BASOPHILS % (AUTO) 0.4 %; EOSINOPHILS % (AUTO) 0.4 %; HGB - HEMOGLOBIN 14.8 g/dL (14.0-18.0); LYMPHOCYTES # (AUTO) 0.6 10^3/uL (1.5-3.5); LYMPHOCYTES % (AUTO) 4.7 %; MEAN CORPUSCULAR HEMOGLOBIN 33.6 pg (27.0-31.0); MEAN CORPUSCULAR HGB CONC 34.9 g/dL (32.0-36.0); MEAN CORPUSCULAR VOLUME 96.2 fL (80.0-94.0); MEAN PLATELET VOLUME 8.2 fL (7.4-11.4); MONOCYTES # (AUTO) 1.2 10^3/uL (0.0-1.0); MONOCYTES % (AUTO) 8.9 %; NEUTROPHILS # (AUTO) 11.1 10^3/uL (1.5-6.6); NEUTROPHILS % (AUTO) 85.6 %; PLT - PLATELET COUNT 257 10^3/uL (130-450); RED BLOOD COUNT 4.42 10^6/uL (4.70-6.10)
[2018-07-17 04:22] LABS: ALBUMIN 3.5 g/dL (3.2-5.5); ALBUMIN/GLOBULIN RATIO 0.9 (1.0-2.2); BILIRUBIN,TOTAL 1.1 mg/dL (0.2-1.0); CALCIUM 8.8 mg/dL (8.5-10.3); CREATININE 2.4 mg/dL (0.6-1.2); TOTAL PROTEIN 7.4 g/dL (6.7-8.2)
--- NOTE | 2018-07-17 04:36 | XRAY Report ---
Reason: Chest Pain Procedure Date: 07/17/2018 Accession Number: [id number] / [id number] Procedure: XR - Chest 1 View X-Ray CPT Code: 79792 FULL RESULT: EXAM: CHEST RADIOGRAPHY EXAM DATE: 07/17/2018 04:12 AM. CLINICAL HISTORY: Chest Pain. COMPARISON: CHEST 1 VIEW 10/08/2017 8:07 AM. TECHNIQUE: 1 view. FINDINGS: Lungs/Pleura: Stable hyperinflation. No new consolidation, effusion, or pneumothorax. Mediastinum: Within exam limitations, the cardiomediastinal contour is normal. Other: None. IMPRESSION: Stable hyperinflation. No evidence of acute cardiopulmonary disease. [facility]
--- NOTE | 2018-07-17 05:30 | ED Physician Documentation ---
PD HPI DYSPNEA - Stated complaint Stated Complaint: DIFFICULTY BREATHING - Chief complaint Chief Complaint: Resp - History obtained from History obtained from: Patient - History of Present Illness Timing - onset: How many days ago (2) Timing - onset during: Light activity Timing - duration: Days (2) Timing - details: Gradual onset Pain level max: 0 Pain level now: 0 Severity Comments: moderate Inciting event(s): URI Improved by: O2, BiPAP / CPAP Worsened by: Coughing Associated symptoms: Fever, Cough, Wheezing - Additional information Additional information: 72-year-old male with history of COPD not on home O2 presents with difficulty breathing. Patient had an old oxygen Concentrator that he has been using for the last 2 days at 2-3 L due to desaturations to the low 80s. Review of Systems Constitutional: reports: Reviewed and negative Eyes: reports: Reviewed and negative Ears: reports: Reviewed and negative Nose: reports: Reviewed and negative Throat: reports: Reviewed and negative Cardiac: reports: Reviewed and negative Respiratory: reports: Reviewed and negative GI: reports: Reviewed and negative : reports: Reviewed and negative Skin: reports: Reviewed and negative Musculoskeletal: reports: Reviewed and negative Neurologic: reports: Reviewed and negative Psychiatric: reports: Reviewed and negative Endocrine: reports: Reviewed and negative Immunocompromised: reports: Reviewed and negative PD PAST MEDICAL HISTORY - Past Medical History Past Medical History: Yes Cardiovascular: Hypertension Respiratory: Pneumonia, Sleep apnea, CPAP use Endocrine/Autoimmune: None GI: None : None HEENT: None Psych: None Musculoskeletal: None Derm: None - Past Surgical History Past Surgical History: Yes Ortho: Other HEENT: Cataracts - Present Medications Home Medications: Ambulatory Orders Medication Instructions Recorded Confirmed Aspirin 81 mg PO DAILY 10/05/17 10/06/17 Pravastatin [Pravachol] 10/05/17 Lisinopril/Hydrochlorothiazide 1 tab PO DAILY 10/06/17 10/06/17 [Lisinopril-Hctz 20-25 mg Tab] - Allergies Allergies/Adverse Reactions: Allergies Allergy/AdvReac Type Severity Reaction Status Date / Time No Known Drug Allergies Allergy Verified 07/17/18 03:49 - Social History Does the pt smoke?: No Smoking Status: Never smoker Does the pt drink ETOH?: No Does the pt have substance abuse?: No - Immunizations Immunizations are current?: Yes - POLST Patient has POLST: No POLST Status: Full Code PD ED PE NORMAL - Vitals Vital signs reviewed: Yes - General General: Alert and oriented X 3, No acute distress - HEENT HEENT: PERRL - Neck Neck: Supple, no meningeal sign - Cardiac Cardiac: RRR, No murmur - Respiratory Respiratory: Other (Wheezes) - Abdomen Abdomen: Normal bowel sounds, Soft, Non tender, Non distended - Derm Derm: Warm and dry - Extremities Extremities: No deformity - Neuro Neuro: Alert and oriented X 3 - Psych Psych: Normal mood, Normal affect Results - Vitals Vitals: Vital Signs - 24 hr 07/17/18 07/17/18 07/17/18 03:45 03:50 04:26 Temperature 37.3 C Heart Rate 120 H 113 H 105 H Respiratory 20 23 17 Rate Blood Pressure 126/54 L 126/54 L O2 Saturation 80 L 95 07/17/18 05:03 Temperature Heart Rate 108 H Respiratory 23 Rate Blood Pressure 119/43 L O2 Saturation 92 Oxygen O2 Source Nasal cannula Oxygen Flow Rate 2 - EKG (time done) 0357 Rate: Rate (enter#) (109) Rhythm: Sinus tachycardia Rogers: Anterior hemiblock Intervals: Prolonged MN QRS: Normal Ischemia: Normal ST segments. No: T wave inversion - Labs Labs: Laboratory Tests 07/17/18 07/17/18 07/17/18 03:55 03:55 03:55 WBC 13.0 H RBC 4.42 L Hgb 14.8 Hct 42.5 MCV 96.2 H MCH 33.6 H MCHC 34.9 RDW 14.0 Plt Count 257 MPV 8.2 Neut # (Auto) 11.1 H Lymph # (Auto) 0.6 L [place] # (Auto) 1.2 H Eos # (Auto) 0.0 Baso # (Auto) 0.0 Absolute Nucleated RBC 0.01 Nucleated RBC % 0.1 D-Dimer Sodium 135 Potassium 3.9 Chloride 97 L Carbon Dioxide 23 Anion Gap 15.0 H BUN 48 H Creatinine 2.4 H Estimated GFR (MDRD) 27 L Glucose 148 H Lactic Acid Calcium 8.8 Total Bilirubin 1.1 H AST 19 ALT 15 Alkaline Phosphatase 62 Troponin I < 0.04 B-Natriuretic Peptide Total Protein 7.4 Albumin 3.5 Globulin 3.9 Albumin/Globulin Ratio 0.9 L Lipase 32 Influenza A (Rapid) Influenza B (Rapid) 07/17/18 07/17/18 07/17/18 03:55 03:55 04:00 WBC RBC Hgb Hct MCV MCH MCHC RDW Plt Count MPV Neut # (Auto) Lymph # (Auto) [place] # (Auto) Eos # (Auto) Baso # (Auto) Absolute Nucleated RBC Nucleated RBC % D-Dimer 723.5 H Sodium Potassium Chloride Carbon Dioxide Anion Gap BUN Creatinine Estimated GFR (MDRD) Glucose Lactic Acid Calcium Total Bilirubin AST ALT Alkaline Phosphatase Troponin I B-Natriuretic Peptide 70 Total Protein Albumin Globulin Albumin/Globulin Ratio Lipase Influenza A (Rapid) Negative Influenza B (Rapid) Negative 07/17/18 04:15 WBC RBC Hgb Hct MCV MCH MCHC RDW Plt Count MPV Neut # (Auto) Lymph # (Auto) [place] # (Auto) Eos # (Auto) Baso # (Auto) Absolute Nucleated RBC Nucleated RBC % D-Dimer Sodium Potassium Chloride Carbon Dioxide Anion Gap BUN Creatinine Estimated GFR (MDRD) Glucose Lactic Acid 1.2 Calcium Total Bilirubin AST ALT Alkaline Phosphatase Troponin I B-Natriuretic Peptide Total Protein Albumin Globulin Albumin/Globulin Ratio Lipase Influenza A (Rapid) Influenza B (Rapid) - Rads (name of study) Chest xray Radiology: Final report received (COPD, no infiltrate) PD MEDICAL DECISION MAKING - ED course Complexity details: reviewed old records, reviewed results, re-evaluated patient, considered differential, d/w patient, d/w family ED course: 72-year-old male with history of COPD presents with hypoxia and difficulty breathing. Chest x-ray with no infiltrate. D-dimer is mildly elevated but within normal limits according to age adjusted d-dimer levels. Patient treated with IV Solu-Medrol and continuous DuoNeb. Admitted for further care given his level of hypoxia. Departure - Departure Disposition: ED Place in Observation Clinical Impression: COPD exacerbation, Hypoxia Condition: Serious
[2018-07-17] MEDS ORDERED: ONDANSETRON 4 MG/2 ML VIAL IVP PRN (05:31)
[2018-07-17] MEDS ORDERED: PROCHLORPERAZINE 10 MG/2 ML VIAL IVP PRN (05:31)
[2018-07-17] MEDS ORDERED: HYDROcod/ACETAM 5/325 MG TABLET PO PRN (05:31)
[2018-07-17] MEDS ORDERED: ACETAMINOPHEN 325 MG TABLET PO PRN (05:31)
--- NOTE | 2018-07-17 06:05 | HISTORY & PHYSICAL EXAMINATION ---
Chief Complaint - Chief Complaint Chief Complaint: Shortness of breath and cough times 3 days History of Present Illness - Admitted From Admitted From:: Emergency depart - History Obtained From Records Reviewed: Emergency department records and previous hospital stay record History obtained from: Emergency department Exam Limitations: None - History of Present Illness HPI Comment/Other: Patient is a 72-year-old male with a past medical history of COPD who quit smoking approximately 1 year ago when he was admitted for pneumonia and otherwise whose only significant medical history is hypertension is now presenting to the emergency room with shortness of breath, cough, and overall feeling sick times 3 days. States that without any known provocation, started feeling like he was having a little bit difficult time breathing, wheezing, coughing with subjective fever and chills unable to document an accurate temperature (he states his home thermometer said 105 F but thinks that this was inaccurate). He progressively got worse and today he came to the emergency room where he was found to be in low 80s for oxygen saturation on presentation. In the emergency department he received a dose of Solu-Medrol, a DuoNeb breathing treatment, both of which seem to help and he is now on 2 L nasal cannula. He was apparently given home oxygen the last time he was discharged from the hospital which is to be used as needed only and he has not been using the oxygen up to now. His labs on ER workup show a mildly elevated white blood cell count of 13, a mildly elevated d-dimer, and a slight exacerbation of his chronic kidney disease. In the emergency room he is afebrile. His lactic acid is normal, but his blood pressure is a little on the low side and his heart rate is mildly tachycardic.Due to the patient's current oxygen requirement and his risk factors, hospitalist service was called to place the patient in observation for further treatment and possible further workup if he does not improve rapidly with the initial treatment. History - Past Medical History Cardiovascular: reports: Hypertension Respiratory: reports: Pneumonia, Sleep apnea, CPAP use Endocrine/Autoimmune: reports: None GI: reports: None : reports: None HEENT: reports: None Psych: reports: None Musculoskeletal: reports: None Derm: reports: None MRSA Hx?: No - Past Surgical History Ortho: reports: Other HEENT: reports: Cataracts - Family & Social History Family History: Mother: Alive and Well (95 yrs, is still living, no major medical issue), Father: (father on 1983, from colon cancer) Family History Comment/Other: pt with his partner is living on his own home on [address]. Pt is still working at seller of truck parts. pt has three children, two boys and one daughter. Social History Notes: Patient reports he quit smoking approximately 1 year ago. Pt denies acohol and drug abuse. - Substance History Use: Uses substance without health or social issues: Tobacco - POLST Patient has POLST: No POLST Status: Full Code Meds/Allgy - Home Medications Home Medications: Ambulatory Orders Medication Instructions Recorded Confirmed Aspirin 81 mg PO DAILY 10/05/17 10/06/17 Pravastatin [Pravachol] 10/05/17 Lisinopril/Hydrochlorothiazide 1 tab PO DAILY 10/06/17 10/06/17 [Lisinopril-Hctz 20-25 mg Tab] - Allergies Allergies/Adverse Reactions: Allergies Allergy/AdvReac Type Severity Reaction Status Date / Time No Known Drug Allergies Allergy Verified 07/17/18 03:49 Review of Systems - Constitutional Constitutional: reports: Fatigue - Ears, Nose & Throat Ears, Nose & Throat: reports: Hoarseness. denies: Sore throat - Cardiovascular Cariovascular: denies: Irregular heart rate, Palpitations, Chest pain - Respiratory Respiratory: reports: Cough, Wheezing, SOB at rest, SOB with exertion. denies: Sputum production - Gastrointestinal Gastrointestinal: denies: Abdominal pain, Change in bowel habits - Musculoskeletal Musculoskeletal: reports: Muscle aches - Integumentary Integumentary: denies: Rash - All Other Systems All Other Systems: reports: Reviewed and negative Prior Level of Functionality: Independent, he works as a salesman for truck parts. He typically travels between [place] and [place] Exam - Vital Signs Reviewed Vital Signs: Yes Vital Signs: Vital Signs x48h Temp Pulse Resp BP Pulse Ox 07/17/18 05:34 111 H 21 106/41 L 90 L 07/17/18 05:03 108 H 23 119/43 L 92 07/17/18 04:26 105 H 17 07/17/18 03:50 113 H 23 126/54 L 95 07/17/18 03:45 37.3 C 120 H 20 126/54 L 80 L - Physical Exam General Appearance: positive: No acute distress Eyes Bilateral: positive: Normal inspection Neck: positive: Nml inspection Respiratory: positive: Chest non-tender, No respiratory distress, Breath sounds nml Cardiovascular: positive: No murmur, No gallop, Tachycardia. negative: Extrasystoles, Systolic murmur, Diastolic murmur Peripheral Pulses: positive: 2+ Abdomen: positive: Non-tender, No organomegaly, Nml bowel sounds, No distention Skin: positive: Color nml Extremities: positive: Non-tender, Nml appearance. negative: Pedal edema Neurologic/Psychiatric: positive: Oriented x3, CN's nml (2-12), Motor nml, Sensation nml Sepsis Event Note (H) - Evaluation Current Stage of Sepsis: Ruled out Conclusion/Plan - Problem List (1) COPD exacerbation Conclusion/Plan: Patient appears to be having a COPD exacerbation however he does endorse some symptoms suggestive of possible infection such as fever and chills at home. His labs regarding infection are relatively benign with a normal lactic acid and only slightly elevated WBC count. Blood cultures are pending. Chest x-ray is not indicative of pneumonia. However given the fever of 105 at home, his age and risk factors I am going to keep him on empiric antibiotics for now in addition to IV Solu-Medrol, duo nebs and will closely monitor for changes. (2) Hypoxia Conclusion/Plan: His hypoxia is explainable by COPD exacerbation, possibly viral or bacterial bronchitis rather than pneumonia. Having said that, he does travel quite a bit for work, and has a mildly elevated d-dimer. He has improved with bronchodilators which makes this consistent with a COPD exacerbation but if the patient does not continue to steadily improve would consider a VQ scan rather than a CT angiogram given the acute on chronic kidney injury. (3) Acute kidney injury superimposed on chronic kidney disease Conclusion/Plan: Possibly secondary to dehydration as the patient admits he has not been eating or drinking well for the last 3 days. He most likely also had an increase in insensible water loss. We will keep him on some IV fluid maintenance therapy and check labs again tomorrow morning. We will avoid any nephrotoxic medications as well. I will hold his hydrochlorothiazide as his blood pressures are soft and consider discharging on lisinopril alone with blood pressures are not particularly elevated. (4) HTN (hypertension) Conclusion/Plan: As above, I am holding his lisinopril hydrochlorothiazide because his blood pressures are quite soft right now. Given his acute on chronic kidney disease in particular would avoid hydrochlorothiazide, and possibly lisinopril at discharge. Qualifiers: Hypertension type: essential hypertension Qualified Code(s): I10 - Essential (primary) hypertension - Lab Results Lab results reviewed: Yes Fish Bones: 07/17/18 03:55 07/17/18 03:55 - Diagnostic Imaging Results Diagnostic Imaging Results: positive: Final report reviewed - EKG Results EKG Interpreted Independently: Yes EKG Comparison: Old EKG unavailable Core Measures - Anticipated LOS I expect patient to be DC'd or transferred within 96 hours.: Yes - DVT/VTE - Prophylaxis VTE/DVT Device ordered at admit?: Yes
[2018-07-17] MEDS: AZITHROMYCIN INJ 500 MG in SODIUM CHLORIDE 0.9% 250 ML IV SCH (06:40)
[2018-07-17] MEDS: SODIUM CHLORIDE 0.9% 1,000 ML IV SCH ×3 (06:47→23:29)
[2018-07-17] MEDS: cefTRIAXone 2 GM in SODIUM CHLORIDE 0.9% MINIBAG 100 ML IV SCH (07:46)
[2018-07-17] MEDS: PRAVASTATIN 40 MG TABLET PO SCH (09:11)
[2018-07-17] MEDS: ENOXAPARIN 40 MG/0.4 ML SYRINGE SUBQ SCH (09:11)
[2018-07-17] MEDS: FAMOTIDINE 20 MG TABLET PO SCH ×2 (09:11→21:45)
[2018-07-17] MEDS: POLYETHYLENE GLYCOL 3350 17 GM PACKET PO SCH (09:11)
[2018-07-17] MEDS: ASPIRIN CHEW 81 MG TABLET PO SCH (09:11)
[2018-07-17] MEDS: SODIUM CHLORIDE FLUSH 0.9% 10 ML SYRINGE IVP SCH ×3 (09:11→23:44)
[2018-07-17] MEDS: IPRATROPIUM/ALBUTEROL 3 ML NEB INH PRN ×2 (12:15→17:32)
[2018-07-17] MEDS: methylPREDNISolone SUCCINATE 125 MG/2 ML VIAL IVP SCH ×2 (13:46→21:45)
[2018-07-18 06:02] LABS: HGB - HEMOGLOBIN 13.2 g/dL (14.0-18.0); LYMPHOCYTES # (AUTO) 0.4 10^3/uL (1.5-3.5); LYMPHOCYTES % (AUTO) 3.6 %; MEAN CORPUSCULAR HEMOGLOBIN 33.3 pg (27.0-31.0); MEAN CORPUSCULAR HGB CONC 33.7 g/dL (32.0-36.0); MEAN CORPUSCULAR VOLUME 98.8 fL (80.0-94.0); MEAN PLATELET VOLUME 8.3 fL (7.4-11.4); MONOCYTES # (AUTO) 0.4 10^3/uL (0.0-1.0); MONOCYTES % (AUTO) 3.1 %; NEUTROPHILS # (AUTO) 10.6 10^3/uL (1.5-6.6); NEUTROPHILS % (AUTO) 93.3 %; PLT - PLATELET COUNT 248 10^3/uL (130-450); RED BLOOD COUNT 3.97 10^6/uL (4.70-6.10); RED CELL DISTRIBUTION WIDTH 14.4 % (12.0-15.0); WHITE BLOOD COUNT 11.3 x10^3/uL (4.8-10.8)
[2018-07-18] MEDS: cefTRIAXone 2 GM in SODIUM CHLORIDE 0.9% MINIBAG 100 ML IV SCH (06:03)
[2018-07-18 06:11] LABS: CALCIUM 8.4 mg/dL (8.5-10.3)
[2018-07-18] MEDS: methylPREDNISolone SUCCINATE 125 MG/2 ML VIAL IVP SCH ×3 (06:16→21:31)
[2018-07-18] MEDS: AZITHROMYCIN INJ 500 MG in SODIUM CHLORIDE 0.9% 250 ML IV SCH (06:44)
[2018-07-18] MEDS: SODIUM CHLORIDE FLUSH 0.9% 10 ML SYRINGE IVP SCH ×2 (07:41→14:12)
[2018-07-18] MEDS: PRAVASTATIN 40 MG TABLET PO SCH (08:43)
[2018-07-18] MEDS: POLYETHYLENE GLYCOL 3350 17 GM PACKET PO SCH ×2 (08:43→08:45)
[2018-07-18] MEDS: ENOXAPARIN 40 MG/0.4 ML SYRINGE SUBQ SCH (08:43)
[2018-07-18] MEDS: FAMOTIDINE 20 MG TABLET PO SCH ×2 (08:43→21:32)
[2018-07-18] MEDS: SODIUM CHLORIDE 0.9% 1,000 ML IV SCH ×2 (08:43→10:05)
[2018-07-18] MEDS: ASPIRIN CHEW 81 MG TABLET PO SCH (08:43)
[2018-07-18] MEDS: IPRATROPIUM/ALBUTEROL 3 ML NEB INH PRN (09:25)
[2018-07-18] MEDS: FORMOTEROL FUMARATE NEB 20 MCG/2 ML INH SCH ×2 (11:27→19:24)
[2018-07-18] MEDS: IPRATROPIUM/ALBUTEROL 3 ML NEB INH SCH ×3 (11:29→19:24)
--- NOTE | 2018-07-18 13:24 | Nuclear Medicine Report ---
Reason: SOB, elevated D-dimer Procedure Date: 07/18/2018 Accession Number: [id number] / [id number] Procedure: NM - Lung Vent/Perf V/Q CPT Code: FULL RESULT: EXAM: VENTILATION/PERFUSION SCAN (V/Q SCAN) EXAM DATE: 07/18/2018 12:59 PM. CLINICAL HISTORY: SOB, elevated D-dimer. COMPARISON: CHEST 1 VIEW 07/17/2018 4:12 AM. TECHNIQUE: Patient was administered 39.9 mCi of technetium 99m DTPA aerosol by inhalation and 8 standard ventilation images of the lungs were obtained. Next, the patient was injected with 5.4 mCi of technetium 99m MAA intravenously and 8 standard perfusion images of the lungs were obtained. FINDINGS: Perfusion images demonstrate heterogeneous perfusion to the lungs bilaterally, with overall reduced perfusion to the upper lung zones. There are multiple small perfusion deficits at the lower lung zones. Ventilatory images demonstrate moderate central airway deposition consistent with obstructive pulmonary physiology with overall worse but otherwise corresponding radiotracer distribution . No convincing mismatch. Comparison chest radiograph demonstrates no significant focal pulmonary opacity. IMPRESSION: 1. No ventilation/perfusion mismatches to indicate pulmonary emboli. Low probability for acute pulmonary embolism. 2. Central airway radiotracer deposition indicating obstructive pulmonary physiology. RADIA
--- NOTE | 2018-07-18 18:17 | PROVIDER PROGRESS NOTE ---
Assessment/Plan - Problem List (1) Hypoxia Assessment/Plan: This is most likely due to COPD exacerbation, acute bronchitis. Due to elevated D-dimer a VQ scan was ordered, as planned by admitting Photo Optics Technician. Troponin x1 and BNP were normal, but since he is gettig iv fluid (for fever and low BP), will obtain an Echo to evaluate for LV contractility and check for cor pulmonale Continue supplemental O2 and managing COPD exacerbation. He has oxygen tank at home, but only used it prn, and only started that 3 days ago, for the first time. Before [facility], he will need an O2 sat study at rest and with walking, to determine if he need O2 more than prn now at home. (2) COPD exacerbation Assessment/Plan: The patient has pursed lip breathing at rest, after walking to the bathroom. Continue empiric iv antibiotics, iv steroids, and change prn nebs to scheduled Duonebs and Formotarol. Continue O2 supplemental. Will change his status to a full admission, since he is still very symptomatic and desaturates. (3) Acute kidney injury superimposed on chronic kidney disease Assessment/Plan: Likely from volume depletion, since iv ydration has improved his BUN/creat. He has a Hx of CKD with creat running approx. 2.0 for years. (4) Hypotension Assessment/Plan: His BP was 90's on admission, and improved to low 100's with iv fluids. His BP is still in that range today, despite not giving his ABRAHAM-HCTZ med. Will request an Echo to evaluate LV contractility and if he has RV dilation, then continue fluids. (No Hypercil Core Transformer Assembler available today, as both Techs have the flu, therefore I did a "quick look Echo" at bedside myself, and it showed normal LV size and wall thickness, normal LVEF, moderately dilated RV with probably depressed RV function. Will continue iv fluids, therefore). Will change his status to a full admission. - Current Meds Current Meds: Current Medications Generic Name Dose Route Start Last Admin Trade Name Freq PRN Reason Stop Dose Admin Albuterol/Ipratropium 3 ml 07/17/18 05:31 07/18/18 09:25 Duoneb INH 3 ml RTQ4H PRN Administration Wheezing Albuterol/Ipratropium 3 ml 07/18/18 11:00 07/18/18 15:09 Duoneb INH 3 ml RTQID ANGIE Administration Aspirin 81 mg 07/17/18 09:00 07/18/18 08:43 [facility] Jamie Aspirin PO 81 mg DAILY ANGIE Administration Enoxaparin Sodium 40 mg 07/17/18 09:00 07/18/18 08:43 Lovenox SUBQ 40 mg DAILY ANGIE Administration Famotidine 20 mg 07/17/18 09:00 07/18/18 08:43 Pepcid PO 20 mg BID ANGIE Administration Formoterol Fumarate 20 mcg 07/18/18 09:29 07/18/18 11:27 Perforomist INH Not Given RTBID ANGIE Azithromycin 500 mg/ Sodium 250 mls @ 250 mls/hr 07/17/18 06:00 07/18/18 07:47 Chloride IV Infused Q24H ANGIE Infusion Ceftriaxone Sodium 2 gm/ 100 mls @ 200 mls/hr 07/17/18 06:00 07/18/18 06:45 Sodium Chloride IV Infused Q24H ANGIE Infusion Sodium Chloride 1,000 mls @ 40 mls/hr 07/18/18 09:26 07/18/18 10:05 Normal Saline 0.9% IV 40 mls/hr Q24H ANGIE Administration Methylprednisolone Sodium Succinate 125 mg 07/17/18 14:00 07/18/18 14:12 Solu-Medrol (125mg Vial) IVP 125 mg TID ANGIE Administration Polyethylene Glycol 17 gm 07/17/18 09:00 07/18/18 08:45 Miralax PO Not Given DAILY ANGIE Pravastatin Sodium 40 mg 07/17/18 09:00 07/18/18 08:43 Pravachol PO 40 mg DAILY ANGIE Administration Sodium Chloride 10 ml 07/17/18 09:00 07/18/18 14:12 Normal Saline Flush 0.9% IVP 10 ml 0100,0900,1700 ANGIE Administration - Lab Result Fish Bone Diagrams: 07/18/18 04:56 07/18/18 04:56 - Additional Planning My Orders: My Active Orders 07/18/18 09:24 Echo Transthoracic Complete [ECHO] Routine 07/18/18 09:26 Sodium Chloride 0.9% [Normal Saline 0.9%] 1,000 ml IV Q24H 07/18/18 09:29 Formoterol Fumarate [Perforomist] 20 mcg INH RTBID 07/18/18 09:30 Oxygen Desat. Study w/Exercise [RC] .ONCE 07/18/18 11:00 Ipratropium/Albuterol [Duoneb] 3 ml INH RTQID 07/18/18 18:08 Transfer [Admit \\ Transfer \\ Status] [] .ONCE 07/18/18 Lunch DIET [Low Sodium Diet] [DIET] Subjective - Subjective Patient Reports: Feeling Better, Other (No longer achy and febrile, like he was at home for 3 days, but SOB just walking to bathroom, even on O2) Nursing Reports: Other (Desats to 87% on R.A.) Objective Vital Signs: Vital Signs - 24 hr 07/17/18 07/17/18 07/18/18 19:06 20:10 00:00 Temperature 36.8 C 36.1 C L Heart Rate 84 Heart Rate [ 98 71 Radial] Respiratory 22 16 20 Rate Blood Pressure 119/55 L 125/55 L [Left Brachial artery] O2 Saturation 95 98 07/18/18 07/18/18 07/18/18 04:59 07:56 09:26 Temperature 36.4 C L 36.3 C L Heart Rate 75 Heart Rate [ 66 72 Radial] Respiratory 20 16 18 Rate Blood Pressure 123/55 L 106/54 L [Left Brachial artery] O2 Saturation 100 93 07/18/18 07/18/18 07/18/18 13:00 15:11 15:35 Temperature 36.3 C L 36.5 C Heart Rate 85 Heart Rate [ 89 85 Radial] Respiratory 19 18 19 Rate Blood Pressure 117/48 L 123/56 L [Left Brachial artery] O2 Saturation 95 94 Oxygen O2 Source Nasal cannula Oxygen Flow Rate 2 I&O (Last 24 Hrs): Intake and Output Totals x24h 07/16/18 07/17/18 07/18/18 23:59 23:59 23:59 Intake Total 3285.416 2478.75 Balance 3285.416 2478.75 General: Alert, Oriented x3 HEENT: Mucous membr. moist/pink Neck: Supple Neuro: Non Focal Cardiovascular: Regular rate, No murmurs Respiratory: Other (Poor air movement but no rales or rhonchi) Abdomen: Normal bowel sounds, Soft Extremities: No edema - Results Results: Laboratory Results WBC 11.3 x10^3/uL (4.8-10.8) H 07/18/18 04:56 RBC 3.97 10^6/uL (4.70-6.10) L 07/18/18 04:56 Hgb 13.2 g/dL (14.0-18.0) L 07/18/18 04:56 Hct 39.2 % (42.0-52.0) L 07/18/18 04:56 MCV 98.8 fL (80.0-94.0) H 07/18/18 04:56 MCH 33.3 pg (27.0-31.0) H 07/18/18 04:56 MCHC 33.7 g/dL (32.0-36.0) 07/18/18 04:56 RDW 14.4 % (12.0-15.0) 07/18/18 04:56 Plt Count 248 10^3/uL (130-450) 07/18/18 04:56 MPV 8.3 fL (7.4-11.4) 07/18/18 04:56 Neut # (Auto) 10.6 10^3/uL (1.5-6.6) H 07/18/18 04:56 Lymph # (Auto) 0.4 10^3/uL (1.5-3.5) L 07/18/18 04:56 [place] # (Auto) 0.4 10^3/uL (0.0-1.0) 07/18/18 04:56 Eos # (Auto) 0.0 10^3/uL (0.0-0.7) 07/18/18 04:56 Baso # (Auto) 0.0 10^3/uL (0.0-0.1) 07/18/18 04:56 Absolute Nucleated RBC 0.00 x10^3/uL 07/18/18 04:56 Nucleated RBC % 0.0 /100WBC 07/18/18 04:56 D-Dimer 723.5 ng/mL (200.0-255.0) H 07/17/18 03:55 Sodium 139 mmol/L (135-145) 07/18/18 04:56 Potassium 3.9 mmol/L (3.5-5.0) 07/18/18 04:56 Chloride 106 mmol/L (101-111) 07/18/18 04:56 Carbon Dioxide 22 mmol/L (21-32) 07/18/18 04:56 Anion Gap 11.0 (6-13) 07/18/18 04:56 BUN 44 mg/dL (6-20) H 07/18/18 04:56 Creatinine 2.0 mg/dL (0.6-1.2) H 07/18/18 04:56 Estimated GFR (MDRD) 33 (>89) L 07/18/18 04:56 Glucose 181 mg/dL (70-100) H 07/18/18 04:56 Lactic Acid 1.2 mmol/L (0.5-2.2) 07/17/18 04:15 Calcium 8.4 mg/dL (8.5-10.3) L 07/18/18 04:56 Total Bilirubin 1.1 mg/dL (0.2-1.0) H 07/17/18 03:55 AST 19 IU/L (10-42) 07/17/18 03:55 ALT 15 IU/L (10-60) 07/17/18 03:55 Alkaline Phosphatase 62 IU/L (42-121) 07/17/18 03:55 Troponin I < 0.04 ng/mL (<0.49) 07/17/18 03:55 B-Natriuretic Peptide 70 pg/mL (5-100) 07/17/18 03:55 Total Protein 7.4 g/dL (6.7-8.2) 07/17/18 03:55 Albumin 3.5 g/dL (3.2-5.5) 07/17/18 03:55 Globulin 3.9 g/dL (2.1-4.2) 07/17/18 03:55 Albumin/Globulin Ratio 0.9 (1.0-2.2) L 07/17/18 03:55 Lipase 32 U/L (22-51) 07/17/18 03:55 Influenza A (Rapid) Negative (Negative) 07/17/18 04:00 Influenza B (Rapid) Negative (Negative) 07/17/18 04:00 - Procedures Procedures: Procedures INSPECTION OF LOWER INTESTINAL TRACT, ENDO (06/16/16) Sepsis Event Note (H) - Evaluation Current Stage of Sepsis: Ruled out
[2018-07-18] MEDS: TEMAZEPAM 15 MG CAPSULE PO PRN (21:32)
[2018-07-18] MEDS: SODIUM CHLORIDE FLUSH 0.9% 10 ML SYRINGE IVP PRN (21:32)
[2018-07-19] MEDS: SODIUM CHLORIDE FLUSH 0.9% 10 ML SYRINGE IVP SCH ×3 (02:37→16:55)
[2018-07-19] MEDS: SODIUM CHLORIDE FLUSH 0.9% 10 ML SYRINGE IVP PRN (05:29)
[2018-07-19] MEDS: methylPREDNISolone SUCCINATE 125 MG/2 ML VIAL IVP SCH ×3 (05:29→21:41)
[2018-07-19] MEDS: cefTRIAXone 2 GM in SODIUM CHLORIDE 0.9% MINIBAG 100 ML IV SCH (05:29)
[2018-07-19 05:33] LABS: BASOPHILS % (AUTO) 0.3 %; LYMPHOCYTES # (AUTO) 0.4 10^3/uL (1.5-3.5); LYMPHOCYTES % (AUTO) 3.1 %; MEAN CORPUSCULAR HEMOGLOBIN 33.4 pg (27.0-31.0); MEAN CORPUSCULAR HGB CONC 33.8 g/dL (32.0-36.0); MEAN CORPUSCULAR VOLUME 98.8 fL (80.0-94.0); MEAN PLATELET VOLUME 8.2 fL (7.4-11.4); MONOCYTES # (AUTO) 0.4 10^3/uL (0.0-1.0); MONOCYTES % (AUTO) 2.6 %; NEUTROPHILS # (AUTO) 13.1 10^3/uL (1.5-6.6); PLT - PLATELET COUNT 259 10^3/uL (130-450); RED BLOOD COUNT 3.91 10^6/uL (4.70-6.10); RED CELL DISTRIBUTION WIDTH 14.4 % (12.0-15.0); WHITE BLOOD COUNT 13.9 x10^3/uL (4.8-10.8)
[2018-07-19] MEDS: SODIUM CHLORIDE 0.9% 1,000 ML IV SCH (05:37)
[2018-07-19 05:41] LABS: CALCIUM 8.4 mg/dL (8.5-10.3); CREATININE 1.9 mg/dL (0.6-1.2)
[2018-07-19] MEDS: AZITHROMYCIN INJ 500 MG in SODIUM CHLORIDE 0.9% 250 ML IV SCH (06:31)
[2018-07-19] MEDS: IPRATROPIUM/ALBUTEROL 3 ML NEB INH SCH ×4 (07:25→23:51)
[2018-07-19] MEDS: FORMOTEROL FUMARATE NEB 20 MCG/2 ML INH SCH ×2 (07:25→23:50)
[2018-07-19] MEDS: FAMOTIDINE 20 MG TABLET PO SCH ×2 (09:10→21:41)
[2018-07-19] MEDS: ASPIRIN CHEW 81 MG TABLET PO SCH (09:10)
[2018-07-19] MEDS: PRAVASTATIN 40 MG TABLET PO SCH (09:10)
[2018-07-19] MEDS: ENOXAPARIN 40 MG/0.4 ML SYRINGE SUBQ SCH (09:11)
[2018-07-19] MEDS: POLYETHYLENE GLYCOL 3350 17 GM PACKET PO SCH (09:11)
--- NOTE | 2018-07-19 10:22 | PROVIDER PROGRESS NOTE ---
Assessment/Plan - Problem List (1) Hypoxia Assessment/Plan: The patient is still very symptomatic and desaturates to 85% at rest after 30 min on R.A. and was down to 77% after walking back from the bathroom to bed. Continue supplemental oxygen. No DCh today, therefore no oxygen desat study until possibly tomorrow. (2) COPD exacerbation Assessment/Plan: Lung exam is minimally better today. Will add Mucinex to help expectoration. Continue iv steroids (high dose, therefore the WBC went up), nebs and treatment of bronchitis. (3) Acute bronchitis Assessment/Plan: The sputum is growing 2 bacterial organisms. Await ID and sensitivities to adjust antibiotics if needed. Add Mucinex for expectoration. (4) Acute kidney injury superimposed on chronic kidney disease Assessment/Plan: Improved BUN/creat with continued iv hydration. Continue iv hydration and check orthostatic VS to determine if he still needs volume replacement. (5) Hypotension Assessment/Plan: Continue iv hydration and check orthostatic VS to determine if he still needs volume replacement. Echo was ordered and is still pending. (6) Ringworm of foot Assessment/Plan: Will treat with po Diflucan 150 mg po weekly for 2 doses, 1 dose today and will plan 1 after DCh, next week. (7) SVT (supraventricular tachycardia) Assessment/Plan: Telemetry showed a 12-beat run of SVT with an intermittently wider QRS, at 1118 am. This was asymptomatic. I suspect it was related either to hypoxia (desaturations) or his steroids (he is slightly tremulous, possibly adrenaline-mediated). Will check Mg. Continue telemetry. - Current Meds Current Meds: Current Medications Generic Name Dose Route Start Last Admin Trade Name Freq PRN Reason Stop Dose Admin Albuterol/Ipratropium 3 ml 07/17/18 05:31 07/18/18 09:25 Duoneb INH 3 ml RTQ4H PRN Administration Wheezing Albuterol/Ipratropium 3 ml 07/18/18 11:00 07/19/18 07:25 Duoneb INH 3 ml RTQID ANGIE Administration Aspirin 81 mg 07/17/18 09:00 07/19/18 09:10 [facility] Aspirin PO 81 mg DAILY ANGIE Administration Enoxaparin Sodium 40 mg 07/17/18 09:00 07/19/18 09:11 Lovenox SUBQ 40 mg DAILY ANGIE Administration Famotidine 20 mg 07/17/18 09:00 07/19/18 09:10 Pepcid PO 20 mg BID ANGIE Administration Formoterol Fumarate 20 mcg 07/18/18 09:29 07/19/18 07:25 Perforomist INH 20 mcg RTBID ANGIE Administration Azithromycin 500 mg/ Sodium 250 mls @ 250 mls/hr 07/17/18 06:00 07/19/18 07:38 Chloride IV Infused Q24H ANGIE Infusion Ceftriaxone Sodium 2 gm/ 100 mls @ 200 mls/hr 07/17/18 06:00 07/19/18 06:00 Sodium Chloride IV Infused Q24H ANGIE Infusion Sodium Chloride 1,000 mls @ 40 mls/hr 07/18/18 09:26 07/19/18 05:37 Normal Saline 0.9% IV 40 mls/hr Q24H ANGIE Administration Methylprednisolone Sodium Succinate 125 mg 07/17/18 14:00 07/19/18 05:29 Solu-Medrol (125mg Vial) IVP 125 mg TID ANGIE Administration Polyethylene Glycol 17 gm 07/17/18 09:00 07/19/18 09:11 Miralax PO Not Given DAILY ANGIE Pravastatin Sodium 40 mg 07/17/18 09:00 07/19/18 09:10 Pravachol PO 40 mg DAILY ANGIE Administration Sodium Chloride 10 ml 07/17/18 05:31 07/19/18 05:29 Normal Saline Flush 0.9% IVP 10 ml PRN PRN Administration NEEDED PER PROVIDER ORDERS Sodium Chloride 10 ml 07/17/18 09:00 07/19/18 08:11 Normal Saline Flush 0.9% IVP Not Given 0100,0900,1700 ANGIE Temazepam 15 mg 07/18/18 18:31 07/18/18 21:32 Restoril PO 15 mg QPM PRN Administration Insomnia - Lab Result Fish Bone Diagrams: 07/19/18 05:20 07/19/18 05:20 - Additional Planning My Orders: My Active Orders 07/18/18 09:24 Echo Transthoracic Complete [ECHO] Routine 07/18/18 09:26 Sodium Chloride 0.9% [Normal Saline 0.9%] 1,000 ml IV Q24H 07/18/18 09:29 Formoterol Fumarate [Perforomist] 20 mcg INH RTBID 01/29/19 11:00 Ipratropium/Albuterol [Duoneb] 3 ml INH RTQID 07/18/18 18:31 Temazepam [Restoril] 15 mg PO QPM PRN 07/18/18 Lunch DIET [Low Sodium Diet] [DIET] 07/19/18 09:30 guaiFENesin [Mucinex] 600 mg PO BID 07/19/18 10:19 Postural [Vital Signs - Orthostatic] [RC] DAILY 07/19/18 11:00 Fluconazole [Diflucan] 150 mg PO ONCE Subjective - Subjective Patient Reports: Feeling Better, Other (Still very SOB with walking to bathroom. Has itchy sites of Ringworm on legs, needed treatment in the past.) Nursing Reports: Other (Desaturations to 77% and to 85% another time.) Objective Vital Signs: Vital Signs - 24 hr 07/18/18 07/18/18 07/18/18 13:00 15:11 15:35 Temperature 36.3 C L 36.5 C Heart Rate 85 Heart Rate [ 89 85 Radial] Respiratory 19 18 19 Rate Blood Pressure 117/48 L 123/56 L [Left Brachial artery] O2 Saturation 95 94 07/18/18 07/18/18 07/19/18 19:25 21:00 00:25 Temperature 36.2 C L 36.6 C Heart Rate 86 Heart Rate [ 90 77 Radial] Respiratory 18 22 18 Rate Blood Pressure 123/49 L 114/72 [Left Brachial artery] O2 Saturation 92 95 07/19/18 07/19/18 07/19/18 04:05 07:29 09:00 Temperature 36.4 C L 36.6 C Heart Rate 74 Heart Rate [ 76 105 H Radial] Respiratory 16 18 18 Rate Blood Pressure 139/53 H 145/51 H [Left Brachial artery] O2 Saturation 95 96 Oxygen O2 Source Nasal cannula Oxygen Flow Rate 2 I&O (Last 24 Hrs): Intake and Output Totals x24h 07/17/18 07/18/18 07/19/18 23:59 23:59 23:59 Intake Total 3285.416 2878.75 2191.333 Output Total 260 250 Balance 3285.416 2618.75 1941.333 General: Alert, Oriented x3, Other (Tripod and pursed lip breathing when he speaks.) HEENT: Mucous membr. moist/pink, Other (Flushed, wearing O2 per n.c.) Neck: Supple, No JVD Neuro: Alert, Non Focal Cardiovascular: Regular rate, No murmurs Respiratory: Other (No wheezing or rales, diminished at apeces.) Extremities: No edema, Other (red-brown macular blotches of both LEs, several locations, max size about 4x4 cm and 2x11 cm.) - Results Results: Laboratory Results WBC 13.9 x10^3/uL (4.8-10.8) H 07/19/18 05:20 RBC 3.91 10^6/uL (4.70-6.10) L 07/19/18 05:20 Hgb 13.0 g/dL (14.0-18.0) L 07/19/18 05:20 Hct 38.6 % (42.0-52.0) L 07/19/18 05:20 MCV 98.8 fL (80.0-94.0) H 07/19/18 05:20 MCH 33.4 pg (27.0-31.0) H 07/19/18 05:20 MCHC 33.8 g/dL (32.0-36.0) 07/19/18 05:20 RDW 14.4 % (12.0-15.0) 07/19/18 05:20 Plt Count 259 10^3/uL (130-450) 07/19/18 05:20 MPV 8.2 fL (7.4-11.4) 07/19/18 05:20 Neut # (Auto) 13.1 10^3/uL (1.5-6.6) H 07/19/18 05:20 Lymph # (Auto) 0.4 10^3/uL (1.5-3.5) L 07/19/18 05:20 [place] # (Auto) 0.4 10^3/uL (0.0-1.0) 07/19/18 05:20 Eos # (Auto) 0.0 10^3/uL (0.0-0.7) 07/19/18 05:20 Baso # (Auto) 0.0 10^3/uL (0.0-0.1) 07/19/18 05:20 Absolute Nucleated RBC 0.00 x10^3/uL 07/19/18 05:20 Nucleated RBC % 0.0 /100WBC 07/19/18 05:20 D-Dimer 723.5 ng/mL (200.0-255.0) H 07/17/18 03:55 Sodium 139 mmol/L (135-145) 07/19/18 05:20 Potassium 4.0 mmol/L (3.5-5.0) 07/19/18 05:20 Chloride 108 mmol/L (101-111) 07/19/18 05:20 Carbon Dioxide 21 mmol/L (21-32) 07/19/18 05:20 Anion Gap 10.0 (6-13) 07/19/18 05:20 BUN 43 mg/dL (6-20) H 07/19/18 05:20 Creatinine 1.9 mg/dL (0.6-1.2) H 07/19/18 05:20 Estimated GFR (MDRD) 35 (>89) L 07/19/18 05:20 Glucose 179 mg/dL (70-100) H 07/19/18 05:20 Lactic Acid 1.2 mmol/L (0.5-2.2) 07/17/18 04:15 Calcium 8.4 mg/dL (8.5-10.3) L 07/19/18 05:20 Total Bilirubin 1.1 mg/dL (0.2-1.0) H 07/17/18 03:55 AST 19 IU/L (10-42) 07/17/18 03:55 ALT 15 IU/L (10-60) 07/17/18 03:55 Alkaline Phosphatase 62 IU/L (42-121) 07/17/18 03:55 Troponin I < 0.04 ng/mL (<0.49) 07/17/18 03:55 B-Natriuretic Peptide 70 pg/mL (5-100) 07/17/18 03:55 Total Protein 7.4 g/dL (6.7-8.2) 07/17/18 03:55 Albumin 3.5 g/dL (3.2-5.5) 07/17/18 03:55 Globulin 3.9 g/dL (2.1-4.2) 07/17/18 03:55 Albumin/Globulin Ratio 0.9 (1.0-2.2) L 07/17/18 03:55 Lipase 32 U/L (22-51) 07/17/18 03:55 Influenza A (Rapid) Negative (Negative) 07/17/18 04:00 Influenza B (Rapid) Negative (Negative) 07/17/18 04:00 - Procedures Procedures: Procedures INSPECTION OF LOWER INTESTINAL TRACT, ENDO (06/16/16) Sepsis Event Note (H) - Evaluation Current Stage of Sepsis: Ruled out
[2018-07-19] MEDS: guaiFENesin 600 MG TABLET PO SCH ×2 (10:24→21:41)
[2018-07-19] MEDS ORDERED: FLUCONAZOLE 100 MG TABLET PO ONE (11:00)
[2018-07-19] MEDS: SACCHAROMYCES BOULARDII 250 MG CAPSULE PO SCH ×2 (13:35→16:55)
[2018-07-19] MEDS: TEMAZEPAM 15 MG CAPSULE PO PRN (21:41)
[2018-07-20 05:11] LABS: BASOPHILS % (AUTO) 0.3 %; EOSINOPHILS % (AUTO) 0.1 %; LYMPHOCYTES # (AUTO) 0.4 10^3/uL (1.5-3.5); LYMPHOCYTES % (AUTO) 3.8 %; MEAN CORPUSCULAR HGB CONC 34.2 g/dL (32.0-36.0); MEAN CORPUSCULAR VOLUME 99.2 fL (80.0-94.0); MEAN PLATELET VOLUME 8.2 fL (7.4-11.4); MONOCYTES # (AUTO) 0.3 10^3/uL (0.0-1.0); MONOCYTES % (AUTO) 2.5 %; NEUTROPHILS % (AUTO) 93.3 %; PLT - PLATELET COUNT 275 10^3/uL (130-450); RED BLOOD COUNT 3.84 10^6/uL (4.70-6.10); RED CELL DISTRIBUTION WIDTH 14.2 % (12.0-15.0); WHITE BLOOD COUNT 10.7 x10^3/uL (4.8-10.8)
[2018-07-20 05:16] LABS: CALCIUM 8.5 mg/dL (8.5-10.3); CREATININE 1.7 mg/dL (0.6-1.2)
[2018-07-20] MEDS: cefTRIAXone 2 GM in SODIUM CHLORIDE 0.9% MINIBAG 100 ML IV SCH (05:33)
[2018-07-20] MEDS: methylPREDNISolone SUCCINATE 125 MG/2 ML VIAL IVP SCH (05:34)
[2018-07-20] MEDS: AZITHROMYCIN INJ 500 MG in SODIUM CHLORIDE 0.9% 250 ML IV SCH (06:32)
[2018-07-20] MEDS: SODIUM CHLORIDE FLUSH 0.9% 10 ML SYRINGE IVP SCH ×4 (06:39→23:44)
[2018-07-20] MEDS: IPRATROPIUM/ALBUTEROL 3 ML NEB INH SCH ×4 (07:26→20:11)
[2018-07-20] MEDS: FORMOTEROL FUMARATE NEB 20 MCG/2 ML INH SCH ×2 (07:26→20:12)
[2018-07-20] MEDS: PRAVASTATIN 40 MG TABLET PO SCH (09:12)
[2018-07-20] MEDS: FAMOTIDINE 20 MG TABLET PO SCH ×2 (09:12→20:34)
[2018-07-20] MEDS: ASPIRIN CHEW 81 MG TABLET PO SCH (09:12)
[2018-07-20] MEDS: guaiFENesin 600 MG TABLET PO SCH ×2 (09:12→20:34)
[2018-07-20] MEDS: SACCHAROMYCES BOULARDII 250 MG CAPSULE PO SCH ×2 (09:12→17:07)
[2018-07-20] MEDS: SODIUM CHLORIDE 0.9% 1,000 ML IV SCH (09:13)
[2018-07-20] MEDS: ENOXAPARIN 40 MG/0.4 ML SYRINGE SUBQ SCH (09:14)
[2018-07-20] MEDS: POLYETHYLENE GLYCOL 3350 17 GM PACKET PO SCH (09:15)
--- NOTE | 2018-07-20 12:53 | PROVIDER PROGRESS NOTE ---
Assessment/Plan - Problem List (1) Hypoxia Assessment/Plan: The RT Barber was able to find a PFT report from 12/2107, which showed his FEV1/FVC ratio to be 20%, indicating severe COPD. His PCP's [employer]ER had ordered that, but it was never acted upon by the PCP office, in fact he was never on inhalers until this admission. He will need O2 10/01 now, previously it was in his home to use prn. (2) COPD exacerbation Assessment/Plan: The PFT report from 12/2107, which showed his FEV1/FVC to be 20%, indicating severe COPD. He improved to 37% after inhalers, indicating a good response. His PCP's SL[employer] HANDLER had ordered that, but it was never acted upon by the PCP office, in fact he was never on inhalers until this admission. Will plan to [facility] on new Advair, Spiriva and Albuterol nebulizer and MDI inhaler. He will also need steroids with a slow taper. Will stop the iv Solumedrol today and begin oral Prednisone today, to assess for worsening of respiratory status before he is discharged. He would benefit from close management by a [employer] Operator and qualifies to attend Pulmonary Rehab in the [facility] here as an outpatient. He now plans to change PCPs and then get a referral to a Track[employer] Operator. (3) Acute bronchitis Assessment/Plan: The microbiology shows 3+ growth of gram neg Dipplococci, indicating possible Hemophillus or Neisseria species. It was unable to be ID'd here and the microbiology dept had to send it out; identification pending possibly in 24-48 hours more. He has been on empiric iv Zithromax and iv Ceftriaxone with a good response in WBC improving. Will change to po Azithomycin 250 mg po daily, starting today, to assess if he has worsening, before [facility]. He is able to expectorate on Mucinex, and is still coughing up white, thick phlegm. His Lisinopril/HCTZ home med was stopped at admission (due to low BP), and this may also have helped decrease an ABRAHAM-I cough. (4) Acute kidney injury superimposed on chronic kidney disease Assessment/Plan: His creat has improved to 1.7, after iv hydration for 3 days, at decreasing iv rates. Will stop hydration today, assess BUN/creat in am. (5) Cor pulmonale Assessment/Plan: The "quick-look" bedside Echo done by myself 2 days ago, showed RV enlargement. It was likely for that, that he was on diuretics at home. No Doppler was done yet to measure his PA pressure. This will need outpatient F/ U with a new Track[employer] Operator. (6) SVT (supraventricular tachycardia) Assessment/Plan: PSVT is a very common arrhythmia in COPD patients. No further atrial dysrhythmias reported. Continue telemetry until [facility]. (7) Ringworm of foot Qualifiers: Laterality: bilateral Qualified Code(s): B35.3 - Tinea pedis Assessment/Plan: He got po Diflucan yesterday x1. He will need another tablet in 6 days (will order at the time of DC). (8) Hypotension Assessment/Plan: Resolved, but he is not hypertensive enough to restart any of his home BP meds. Will stop iv hydration today. - Current Meds Current Meds: Current Medications Generic Name Dose Route Start Last Admin Trade Name Freq PRN Reason Stop Dose Admin Albuterol/Ipratropium 3 ml 07/17/18 05:31 07/18/18 09:25 Duoneb INH 3 ml RTQ4H PRN Administration Wheezing Albuterol/Ipratropium 3 ml 07/18/18 11:00 07/20/18 11:23 Duoneb INH 3 ml RTQID ANGIE Administration Aspirin 81 mg 07/17/18 09:00 07/20/18 09:12 [facility] Aspirin PO 81 mg DAILY ANGIE Administration Enoxaparin Sodium 40 mg 07/17/18 09:00 07/20/18 09:14 Lovenox SUBQ 40 mg DAILY ANGIE Administration Famotidine 20 mg 07/17/18 09:00 07/20/18 09:12 Pepcid PO 20 mg BID ANGIE Administration Formoterol Fumarate 20 mcg 07/18/18 09:29 07/20/18 07:26 Perforomist INH 20 mcg RTBID ANGIE Administration Guaifenesin 600 mg 07/19/18 09:30 07/20/18 09:12 Mucinex PO 600 mg BID ANGIE Administration Polyethylene Glycol 17 gm 07/17/18 09:00 07/20/18 09:15 Miralax PO Not Given DAILY ANGIE Pravastatin Sodium 40 mg 07/17/18 09:00 07/20/18 09:12 Pravachol PO 40 mg DAILY ANGIE Administration Saccharomyces Boulardii 250 mg 07/19/18 12:00 07/20/18 09:12 Florastor PO 250 mg BIDWM ANGIE Administration Sodium Chloride 10 ml 07/17/18 05:31 07/19/18 05:29 Normal Saline Flush 0.9% IVP 10 ml PRN PRN Administration NEEDED PER PROVIDER ORDERS Sodium Chloride 10 ml 07/17/18 09:00 07/20/18 10:07 Normal Saline Flush 0.9% IVP Not Given 0100,0900,1700 ANGIE Temazepam 15 mg 07/18/18 18:31 07/19/18 21:41 Restoril PO 15 mg QPM PRN Administration Insomnia - Lab Result Fish Bone Diagrams: 07/20/18 04:35 07/20/18 04:35 - Additional Planning My Orders: My Active Orders 07/19/18 12:00 Saccharomyces Boulardii [Florastor] 250 mg PO BIDWM 07/20/18 10:20 Oxygen Desat. Study w/Exercise [RC] .ONCE 07/20/18 13:00 Azithromycin [Zithromax] 250 mg PO DAILY predniSONE [Deltasone] 10 mg PO DAILYWM Subjective - Subjective Patient Reports: Resting Comfortably, Shortness of Breath Nursing Reports: Other (Pt gets very tachypneic after walking in room. O2 sat study showed he desaturates at rest on R.A. to 85%, and needs 4L O2 at rest, but with 4L he desaturates to 89% with ambulation and needs to be set to 5L with activity. He uses CPAP at home, and will need O2 bled into the CPAP.) Objective Vital Signs: Vital Signs - 24 hr 07/19/18 07/19/18 07/19/18 15:45 16:14 21:00 Temperature 36.7 C 37.0 C Heart Rate 86 Heart Rate [ 83 89 Radial] Heart Rate [ Sitting (After 1 Minute)] Heart Rate [ Standing (After 1 Minute)] Heart Rate [ Supine] Respiratory 18 20 18 Rate Blood Pressure 142/57 H 146/60 H [Left Brachial artery] Blood Pressure [Sitting (After 1 Minute)] Blood Pressure [Standing ( After 1 Minute) ] Blood Pressure [Supine] O2 Saturation 96 93 07/20/18 07/20/18 07/20/18 00:39 01:43 05:41 Temperature 36.6 C 36.8 C Heart Rate Heart Rate [ 84 87 Radial] Heart Rate [ Sitting (After 1 Minute)] Heart Rate [ Standing (After 1 Minute)] Heart Rate [ Supine] Respiratory 20 20 Rate Blood Pressure 128/48 L 149/68 H [Left Brachial artery] Blood Pressure [Sitting (After 1 Minute)] Blood Pressure [Standing ( After 1 Minute) ] Blood Pressure [Supine] O2 Saturation 98 92 07/20/18 07/20/18 07/20/18 07:26 08:07 08:08 Temperature 36.4 C L Heart Rate 78 Heart Rate [ 79 Radial] Heart Rate [ 89 Sitting (After 1 Minute)] Heart Rate [ 93 Standing (After 1 Minute)] Heart Rate [ 79 Supine] Respiratory 20 16 Rate Blood Pressure 146/58 H [Left Brachial artery] Blood Pressure 136/60 H [Sitting (After 1 Minute)] Blood Pressure 133/56 H [Standing ( After 1 Minute) ] Blood Pressure 146/58 H [Supine] O2 Saturation 93 07/20/18 07/20/18 11:00 12:27 Temperature 36.8 C Heart Rate 106 H Heart Rate [ 96 Radial] Heart Rate [ Sitting (After 1 Minute)] Heart Rate [ Standing (After 1 Minute)] Heart Rate [ Supine] Respiratory 22 16 Rate Blood Pressure 148/67 H [Left Brachial artery] Blood Pressure [Sitting (After 1 Minute)] Blood Pressure [Standing ( After 1 Minute) ] Blood Pressure [Supine] O2 Saturation 92 Oxygen O2 Source Nasal cannula Oxygen Flow Rate 2 I&O (Last 24 Hrs): Intake and Output Totals x24h 07/18/18 07/19/18 07/20/18 23:59 23:59 23:59 Intake Total 2878.75 3031.333 1632 Output Total 260 250 400 Balance 2618.75 2781.333 1232 General: Alert, Oriented x3 HEENT: Mucous membr. moist/pink, Other (wearing )2 per n.c.) Neck: Supple, No JVD Neuro: Alert, Non Focal Cardiovascular: Regular rate, No murmurs Respiratory: No respiratory distress, Breath sounds nml Abdomen: Soft Extremities: No edema, Other (Blotchy rash of both shins.) - Results Results: Laboratory Results WBC 10.7 x10^3/uL (4.8-10.8) 07/20/18 04:35 RBC 3.84 10^6/uL (4.70-6.10) L 07/20/18 04:35 Hgb 13.0 g/dL (14.0-18.0) L 07/20/18 04:35 Hct 38.1 % (42.0-52.0) L 07/20/18 04:35 MCV 99.2 fL (80.0-94.0) H 07/20/18 04:35 MCH 34.0 pg (27.0-31.0) H 07/20/18 04:35 MCHC 34.2 g/dL (32.0-36.0) 07/20/18 04:35 RDW 14.2 % (12.0-15.0) 07/20/18 04:35 Plt Count 275 10^3/uL (130-450) 07/20/18 04:35 MPV 8.2 fL (7.4-11.4) 07/20/18 04:35 Neut # (Auto) 10.0 10^3/uL (1.5-6.6) H 07/20/18 04:35 Lymph # (Auto) 0.4 10^3/uL (1.5-3.5) L 07/20/18 04:35 [place] # (Auto) 0.3 10^3/uL (0.0-1.0) 07/20/18 04:35 Eos # (Auto) 0.0 10^3/uL (0.0-0.7) 07/20/18 04:35 Baso # (Auto) 0.0 10^3/uL (0.0-0.1) 07/20/18 04:35 Absolute Nucleated RBC 0.00 x10^3/uL 07/20/18 04:35 Nucleated RBC % 0.0 /100WBC 07/20/18 04:35 D-Dimer 723.5 ng/mL (200.0-255.0) H 07/17/18 03:55 Sodium 138 mmol/L (135-145) 07/20/18 04:35 Potassium 3.9 mmol/L (3.5-5.0) 07/20/18 04:35 Chloride 109 mmol/L (101-111) 07/20/18 04:35 Carbon Dioxide 21 mmol/L (21-32) 07/20/18 04:35 Anion Gap 8.0 (6-13) 07/20/18 04:35 BUN 39 mg/dL (6-20) H 07/20/18 04:35 Creatinine 1.7 mg/dL (0.6-1.2) H 07/20/18 04:35 Estimated GFR (MDRD) 40 (>89) L 07/20/18 04:35 Glucose 181 mg/dL (70-100) H 07/20/18 04:35 Lactic Acid 1.2 mmol/L (0.5-2.2) 07/17/18 04:15 Calcium 8.5 mg/dL (8.5-10.3) 07/20/18 04:35 Magnesium 2.3 mg/dL (1.7-2.8) 07/19/18 05:20 Total Bilirubin 1.1 mg/dL (0.2-1.0) H 07/17/18 03:55 AST 19 IU/L (10-42) 07/17/18 03:55 ALT 15 IU/L (10-60) 07/17/18 03:55 Alkaline Phosphatase 62 IU/L (42-121) 07/17/18 03:55 Troponin I < 0.04 ng/mL (<0.49) 07/17/18 03:55 B-Natriuretic Peptide 70 pg/mL (5-100) 07/17/18 03:55 Total Protein 7.4 g/dL (6.7-8.2) 07/17/18 03:55 Albumin 3.5 g/dL (3.2-5.5) 07/17/18 03:55 Globulin 3.9 g/dL (2.1-4.2) 07/17/18 03:55 Albumin/Globulin Ratio 0.9 (1.0-2.2) L 07/17/18 03:55 Lipase 32 U/L (22-51) 07/17/18 03:55 Influenza A (Rapid) Negative (Negative) 07/17/18 04:00 Influenza B (Rapid) Negative (Negative) 07/17/18 04:00 - Procedures Procedures: Procedures INSPECTION OF LOWER INTESTINAL TRACT, ENDO (06/16/16) Sepsis Event Note (H) - Evaluation Current Stage of Sepsis: Ruled out
[2018-07-20] MEDS: predniSONE 10 MG TABLET PO SCH (13:09)
[2018-07-20] MEDS: TEMAZEPAM 15 MG CAPSULE PO PRN (23:38)
[2018-07-21 05:19] LABS: BASOPHILS % (AUTO) 0.2 %; HGB - HEMOGLOBIN 13.2 g/dL (14.0-18.0); LYMPHOCYTES # (AUTO) 0.6 10^3/uL (1.5-3.5); LYMPHOCYTES % (AUTO) 6.2 %; MEAN CORPUSCULAR HEMOGLOBIN 33.7 pg (27.0-31.0); MEAN CORPUSCULAR HGB CONC 34.3 g/dL (32.0-36.0); MEAN CORPUSCULAR VOLUME 98.2 fL (80.0-94.0); MONOCYTES # (AUTO) 0.7 10^3/uL (0.0-1.0); MONOCYTES % (AUTO) 6.5 %; NEUTROPHILS # (AUTO) 9.1 10^3/uL (1.5-6.6); NEUTROPHILS % (AUTO) 87.1 %; PLT - PLATELET COUNT 281 10^3/uL (130-450); RED BLOOD COUNT 3.92 10^6/uL (4.70-6.10); RED CELL DISTRIBUTION WIDTH 14.3 % (12.0-15.0); WHITE BLOOD COUNT 10.4 x10^3/uL (4.8-10.8)
[2018-07-21 05:26] LABS: CALCIUM 8.7 mg/dL (8.5-10.3); CREATININE 1.7 mg/dL (0.6-1.2)
[2018-07-21] MEDS: FORMOTEROL FUMARATE NEB 20 MCG/2 ML INH SCH (07:35)
[2018-07-21] MEDS: IPRATROPIUM/ALBUTEROL 3 ML NEB INH SCH ×2 (07:35→11:43)
[2018-07-21] MEDS: PRAVASTATIN 40 MG TABLET PO SCH (08:13)
[2018-07-21] MEDS: guaiFENesin 600 MG TABLET PO SCH (08:13)
[2018-07-21] MEDS: ASPIRIN CHEW 81 MG TABLET PO SCH (08:13)
[2018-07-21] MEDS: SODIUM CHLORIDE FLUSH 0.9% 10 ML SYRINGE IVP SCH (08:13)
[2018-07-21] MEDS: SACCHAROMYCES BOULARDII 250 MG CAPSULE PO SCH (08:13)
[2018-07-21] MEDS: FAMOTIDINE 20 MG TABLET PO SCH (08:13)
[2018-07-21] MEDS: POLYETHYLENE GLYCOL 3350 17 GM PACKET PO SCH (08:15)
[2018-07-21] MEDS ORDERED: AZITHROMYCIN 250 MG TABLET PO SCH (09:00)
[2018-07-21] MEDS: predniSONE 10 MG TABLET PO SCH (09:41)
[2018-07-21] MEDS: ENOXAPARIN 40 MG/0.4 ML SYRINGE SUBQ SCH (09:41)
--- NOTE | 2018-07-21 12:18 | Discharge Plan ---
Discharge Plan Disposition: Home, Self Care Condition: Poor Prescriptions: Albuterol 2.5 mg INH Q4H PRN #60 neb PRN Reason: Wheezing Albuterol Sulfate [Proair Hfa Inhaler] 1 - 2 puffs INH BID #1 inhaler Azithromycin [Zithromax] 250 mg PO DAILY #4 tablet Fluticasone/Salmeterol [Advair 250-50 Diskus] 1 each IH BID #60 blst.w.dev guaiFENesin [Mucinex] 600 mg PO BID #8 tablet Nebulizer and Compressor [Easy Air Compressor Nebulizer] 1 each QID #1 each predniSONE [Deltasone] 10 mg PO DAILYWM #30 tablet Tiotropium [place] [Spiriva Respimat] 4 gm IH DAILY #30 mist.inhal Diet: Low Sodium Activity Restrictions: Activity as Tolerated Shower Restrictions: No Driving Restrictions: No Instruction Topics: COPD, Oxygen Home Use, Breathing Controlled Dc, Coughing Techniques Dc, Breathing Pursed Lip Dc, Inhaler Metered Dose Dc Additional Instructions or Follow Up instructions: You were admitted for treatment of your COPD, which is severe. You are being discharged with new inhalers, a nebulizer machine prescription and new order to use oxygen continuously (set at 4 Liters continuously, but 5 Liters during activity). Please take the antibiotics until they are done and use the inhalers as prescribed. You will be on a slow-taper of steroids for your COPD. The Mucinex for the cough and phlegm was also prescribed. This management should be overseen from here on in by your PCP or a Small Engine Mechanic. A list of providers was given to you by our Social Work/Care Management staff. You should be seen by your PCP in 1-2 weeks and a Small Engine Mechanic of your choice in the future. A referral to attend Pulmonary Rehab at the [facility] here was requested for you. If you have new or worsening symptoms, come to the ER. Follow-Up Care: [facility] - Pulmonary No Smoking: If you smoke, Please STOP! Call for help. Follow-up with: Kirsten Garcia PA-C [Primary Care Provider] -
[2018-07-21 12:29] VITALS: BP 149/65
--- NOTE | 2018-07-27 14:28 | DISCHARGE SUMMARY ---
Physician: Elke Denson MD DATE OF ADMISSION: 07/18/2018 DATE OF DISCHARGE: 07/21/2018 HISTORY OF PRESENT ILLNESS: This is a 72-year-old white male with a history of COPD diagnosed a year ago when he had an admission for pneumonia and at that time he quit smoking. He also has a history of hypertension. He presented to the emergency room with shortness of breath, cough, and was found to have desaturations of 80% and was admitted for management of his respiratory status. HOSPITAL COURSE AND DISCHARGE DIAGNOSES 1. Hypoxia. Prior to this admission, the patient had oxygen at home, which he only used p.r.n. and this he only required in the past 1 month. A PFT report from 01/06/2018 showed his FEV1/FVC ratio to be 20% indicating severe COPD. The patient was on no inhalers at home and never needed steroids. He was placed on Solu-Medrol IV, nebulizers, and supplemental oxygen on this admission. He required supplemental oxygen even at the time of discharge. He uses [employer] [facility] and his current order was room air in the daytime and 2 liters at night or p.r.n. On the final 2 days, he was tested at rest and with activity. He had room air saturations of 85%. At rest on 2 liters, his O2 saturations were 86% and finally titrated up to 4 liters per minute, oxygen saturation was 91%. With ambulation on 4 liters per minute, his O2 saturations were 88%, and finally on 5 liters per minute with exertion his O2 saturations were 90%. I am updating his home O2 treatment to 4 liters per minute at rest and sleep, 5 liters per minute with exertion. He also could use oxygen bled into his home CPAP machine. 2. Chronic obstructive pulmonary disease exacerbation. The COPD exacerbation improved after several days of steroids, nebulizers, cough suppressant and expectorant, and he was discharged on new Spiriva, Advair, and albuterol nebulizer and an albuterol MDI inhaler. He was sent home with a slow oral Prednisone taper. He would benefit from close management with a Voltmeter Operator and he qualifies to attend pulmonary rehab at the [facility] here as an outpatient, which was ordered. 3. Acute bronchitis. The patient had sputum production and cultures of his sputum grew 3+ gram-negative diplococci, indicating possible Haemophilus or Neisseria species. It was not able to be identified here in the Microbiology Department and had to send it out. He was on empiric IV Zithromax and IV ceftriaxone with a good response in his white blood count, which went from 13 down to 10.4 on the day of discharge. His Lisinopril home medication was advised to be stopped (at admission, he had low blood pressure), but also because this may be giving him an ABRAHAM-Inhibitor cough. 4. Acute kidney injury, superimposed on chronic kidney injury. His admission BUN was 44 and creatinine 2.0. His Lisinopril/HCTZ home medication was discontinued and he received very gentle hydration. On the day of discharge, his BUN was 41 and creatinine 1.7. 5. Cor pulmonale. The hospital was without an Echo service for approximately 7 days. A "quick look" bedside Echo showed RV enlargement consistent with cor pulmonale. No complete Echo was able to be done and he needs this ordered to be done as an outpatient. 6. SVT. The patient had episodes of paroxysmal supraventricular tachycardia, which is a very common arrhythmia in COPD patients. These were asymptomatic, short runs and stopped spontaneously. He was not put on any oral medications for these. 7. Ringworm of the foot. The patient reported several areas on both shins of a brownish-red macular rash and he received 1 p.o. Diflucan dose orally here. There could have another tablet ordered within 1 week. 8. Hypotension. The patient's admitting blood pressure was 126/54 with a pulse of 120 suggesting volume depletion. He dropped as low as 106/41. His home blood pressure medications were stopped and not used during the entire admission. He required hydration gently and blood pressures ran in the 120s - 130s/ 50s - 70s while here. 9. History of hypertension. He was told to no longer take his Lisinopril/HCTZ since there were no measurements of hypertension while here. He was advised to be on a low-salt diet. LABORATORY AND IMAGING: EKG here showed sinus rhythm, LAFB, poor R-wave progression. Chest x-ray done here showed hyperinflation, normal cardiac size. A V/Q scan was done here to rule out pulmonary embolism as the cause of the new hypoxia and this had low probability for PE. ALLERGIES: NONE. MEDICATIONS AT DISCHARGE: 1. Aspirin 81 mg daily. 2. Pravastatin 80 mg daily. 3. Albuterol 2.5 mg inhaler q.4 h. p.r.n. 4. ProAir HFA inhaler 1-2 puffs b.i.d. 5. Zithromax 250 mg p.o. daily for 4 more days. 6. Advair Diskus 1 puff b.i.d. 7. Mucinex 600 mg p.o. b.i.d. for 4 more days, a new nebulizer and compressor. 8. Prednisone 10 mg with a slow tapering schedule. 9. Spiriva Respimat 4 grams inhalation daily. PHYSICAL EXAMINATION AT DISCHARGE VITAL SIGNS: Blood pressure 140/53, pulse 76, afebrile, room air saturation as described above, respiratory rate 16. HEENT: Unremarkable. NECK: Without JVD or carotid bruits. CHEST: Clear with good air movement. HEART: Sounds are distant. ABDOMEN: Soft, nontender. No organomegaly. EXTREMITIES: No clubbing, cyanosis, edema. NEUROLOGIC: Intact. FOLLOWUP: He was advised to see his PCP within 1 week and also recommended to have a Voltmeter Operator and also recommended to start pulmonary rehab at the [facility] here. CODE STATUS: FULL CODE. TIME REQUIRED TO COMPLETE THIS ENTIRE DISCHARGE, CHART REVIEW, ORDER PLACEMENT, DISCUSSION WITH THE PATIENT AND IN THE ROOM: 60 minutes. cc: Kirsten Garcia PA-C TD: 07/27/2018 13:37 MTDD
== END 2018-07-21 13:52 | disposition home or self-care (01) | DRG 202 ==
LOC: ED 03:40 → MS2 05:31 → OBSVTOIN 07-18 18:08
PROVIDERS: ADMIT Family Medicine Sports Medicine; ATTEND Internal Medicine
DX: J20.8 Acute bronchitis due to other specified organisms (principal); J44.1 Chronic obstructive pulmonary disease with (acute) exacerbation; N17.9 Acute kidney failure, unspecified; I47.1 Supraventricular tachycardia; J44.0 Chronic obstructive pulmonary disease with (acute) lower respiratory infection; G47.30 Sleep apnea, unspecified; Z79.82 Long term (current) use of aspirin; R09.02 Hypoxemia; I12.9 Hypertensive chronic kidney disease with stage 1 through stage 4 chronic kidney disease, or unspecified chronic kidney disease; N18.9 Chronic kidney disease, unspecified; E86.9 Volume depletion, unspecified; I95.9 Hypotension, unspecified; I27.81 Cor pulmonale (chronic); B35.3 Tinea pedis; Z87.01 Personal history of pneumonia (recurrent); Z87.891 Personal history of nicotine dependence; Z99.81 Dependence on supplemental oxygen
CPT/HCPCS: 36415; 71045; 78582; 80048; 80053; 81599; 83605; 83690; 83735; 83880; 84484; 85025; 85379; 87040; 87070; 87205; 87275; 87276; 93005; 94640; 94664; 94761; 96365; 96366; 96367; 96372; 96374; 96375; 96376; 99284

== ENCOUNTER 2020-12-05 09:26 | Emergency (ER) | payer MEDICARE ==
--- NOTE | 2020-12-05 09:38 | ED Physician Documentation ---
PD HPI LOWER EXT INJURY - Stated complaint Stated Complaint: RT KNEE PX - Chief complaint Chief Complaint: Ext Problem - History obtained from History obtained from: Patient - History of Present Illness PD HPI LOW EXT INJURY LOCATION: Right, Knee Type of injury: No: Fall, Twist, Blunt / blow (not aware of acute injury.) Timing - onset: How many days ago (2) Timing - duration: Days (2) Timing - details: Gradual onset, Still present Worsened by: Moving, Palpating, Other (knee feels best slightly flexed.) Associated symptoms: Swelling. No: Weakness, Numbness, Discolored Similar symptoms before: Has not had sx before (no history of gout nor known meniscal injury.) Review of Systems Constitutional: denies: Fever, Chills Nose: denies: Rhinorrhea / runny nose, Congestion Throat: denies: Sore throat Respiratory: denies: Cough Skin: denies: Abrasion (s), Laceration (s) Neurologic: denies: Focal weakness, Numbness PD PAST MEDICAL HISTORY - Past Medical History Cardiovascular: Hypertension, High cholesterol Respiratory: Sleep apnea, CPAP use Neuro: None Endocrine/Autoimmune: None GI: None : None HEENT: None Psych: None Musculoskeletal: None Derm: Other - Past Surgical History Past Surgical History: Yes Ortho: Other HEENT: Cataracts - Present Medications Home Medications: Ambulatory Orders Medication Instructions Recorded Confirmed Pravastatin [Pravachol] 80 mg PO DAILY 10/05/17 12/05/20 Lisinopril/Hydrochlorothiazide 1 tab PO DAILY 10/06/17 12/05/20 [Lisinopril-Hctz 20-25 mg Tab] Fluticasone/Salmeterol [Advair 1 each IH BID #60 blst.w.dev 07/20/18 12/05/20 250-50 Diskus] HYDROcod/ACETAM 5/325 [[place] 5/325] 1 ea PO Q6H PRN #14 tablet 12/05/20 Naproxen [EC-Naproxen] 500 mg PO BID #20 12/05/20 - Allergies Allergies/Adverse Reactions: Allergies Allergy/AdvReac Type Severity Reaction Status Date / Time No Known Drug Allergies Allergy Verified 12/05/20 09:34 - Social History Does the pt smoke?: No Smoking Status: Former smoker Does the pt drink ETOH?: No Does the pt have substance abuse?: No - Immunizations Immunizations are current?: Yes - POLST Patient has POLST: No POLST Status: Full Code PD ED PE NORMAL - Vitals Vital signs reviewed: Yes - General General: Alert and oriented X 3, No acute distress (he appears in pain with attempting ROM of the knee. ), Well developed/nourished - Derm Derm: Normal color, Warm and dry, No rash - Extremities Extremities: Other (right knee with mild redness anteriorly. Moderate effusion. No skin sores. ) - Neuro Neuro: Alert and oriented X 3, No motor deficit, No sensory deficit, Normal speech Results - Vitals Vitals: Vital Signs - 24 hr 12/05/20 12/05/20 09:30 13:13 Temperature 36.2 C L 37.1 C Heart Rate 90 85 Respiratory 16 16 Rate Blood Pressure 128/56 L 133/60 H O2 Saturation 96 95 Oxygen O2 Source Room air - Labs Labs: Microbiology 12/05/20 11:42 Body Fluid Culture - Preliminary Synovial Fluid Laboratory Tests 12/05/20 12/05/20 11:42 11:42 Fluid Source KNEE Fluid Color BLOODY Fluid Clarity TURBID Fluid WBC Fluid RBC Fluid Neutrophils % 92 Fluid Lymphocytes % 8 Fluid Crystals NONE SEEN - Rads (name of study) right knee Radiology: Prelim report reviewed (no acute process; moderate effusion. ), See rad report Procedures - Arthrocentesis Joint: Knee (right knee medial joint line.) Preparation: Sterile prep and drape Anesthesia: Lidocaine 1% Fluid: Sent for cell count, Cloudy, Sent for crystals, Sent for culture, Fluid obtained - cc (12), Sent for gram stain. No: Purulent Aftercare: Dressing applied, No complications, Patient tolerated well PD MEDICAL DECISION MAKING - ED course Complexity details: reviewed results (lab gave % cell type but not actual cell count due to clots. So cannot use cell count as gauge of possible infection vs i nflammatory. No organisms seen. ), considered differential (seems likely inflammatory. Has mod effusion, so can tap it. Not as likely infectious. ), d/w patient Departure - Departure Disposition: 01 Home, Self Care Clinical Impression: Knee pain Qualifiers: Chronicity: acute Laterality: right Qualified Code(s): M25.561 - Pain in right knee Effusion of knee Qualifiers: Laterality: right Qualified Code(s): M25.461 - Effusion, right knee Condition: Stable Record reviewed to determine appropriate education?: Yes Follow-Up: Gilda Dong PA-C [Primary Care Provider] - Freddy Jeffrey MD [Provider Admit Priv/Credential] - Prescriptions: Naproxen [EC-Naproxen] 500 mg PO BID #20 HYDROcod/ACETAM 5/325 [[place] 5/325] 1 ea PO Q6H PRN #14 tablet PRN Reason: Pain Comments: The fluid from the knee does not have any crystals in it so less likely gout. There is some blood as well as some inflammatory cells. It does not look obvious infection so we will await the culture to better ascertain for infection. At this point it sounds inflammatory like arthritis or the result of a injury like meniscal injury. This point we would treat it with anti-inflammatory such as naproxen twice daily with food. An Dariel wrap for the knee to help reduce swelling. Add Tylenol every 4-6 hours or hydrocodone if needed for worse pain. Recheck if not improved well over the next few days and return if worse. We will call you if the culture shows any signs of infection. Discharge Date/Time: 12/05/20 13:15
[2020-12-05] MEDS ORDERED: KETOROLAC 30 MG/ML VIAL IM STA (10:02)
[2020-12-05] MEDS ORDERED: HYDROmorphone 2 MG/ML VIAL IM STA (10:03)
--- NOTE | 2020-12-05 10:44 | XRAY Report ---
PROCEDURE: Knee 3 View RT INDICATIONS: knee pain for 2 days with swelling TECHNIQUE: 3 views of the right knee(s) were acquired. COMPARISON: None. FINDINGS: Bones: No fractures or dislocations. No suspicious bony lesions. Soft tissues: Moderate joint effusion is noted. IMPRESSION: Moderate joint effusion without fracture or dislocation Reviewed by: Moi Marina MD on 12/05/2020 9:42 AM [email or web address] Approved by: Moi Marina MD on 12/05/2020 9:42 AM AKDT Station ID: [id number]
[2020-12-05] MEDS ORDERED: LIDOCAINE 1%-EPI 1:100000 20 ML MDV SUBQ STA (11:05)
[2020-12-05 12:03] LABS: BF CLARITY TURBID; BF COLOR BLOODY; BF SOURCE KNEE
[2020-12-05 12:43] LABS: LYMPHOCYTES %,BODY FLUID 8 %; NEUTROPHILS %, BF 92 %
[2020-12-05 13:15] VITALS: BP 133/60
== END 2020-12-05 13:15 | disposition home or self-care (01) ==
LOC: ED 09:26
DX: M25.561 Pain in right knee (principal); M25.461 Effusion, right knee; I10 Essential (primary) hypertension; Z87.891 Personal history of nicotine dependence
CPT/HCPCS: 20610; 73562; 87070; 87205; 89051; 89060; 96372; 99283; 99284; J1170

== ENCOUNTER 2022-07-05 11:35 | Outpatient (CLI) | payer MEDICARE ==
--- NOTE | 2022-07-05 13:49 | Ultrasound Report ---
PROCEDURE: Retroperitoneal INDICATIONS: STAGE 4 KIDNEY DISEASE TECHNIQUE: Real-time scanning was performed of the retroperitoneal organs, with image documentation. COMPARISON: None. FINDINGS: Kidneys: Kidneys are normal in size. Right kidney measures 9.9 cm long; left kidney measures 10.0 c m long. Right renal cortical thickness is 1.1 cm; left renal cortical thickness is 1.0 cm. No solid masses, hydronephrosis, or nephrolithiasis. There is a 2.6 x 2.5 x 2.0 cm simple cyst in the mid to inferior right kidney. Pancreas: Visualized portions of the pancreas are sonographically normal. Aorta: Visualized aorta is normal in caliber at 3 cm or less. Iliac arteries: Proximal common iliac arteries are normal in caliber at 2.5 cm or less. IVC: Intrahepatic inferior vena cava is patent. Bladder: Pre-void bladder volume is 545 mL. Post-void residual is 99 mL. Pre-void images demonstr ate no intraluminal masses or stones. On pre-void images, both ureteral jets are noted with color Do ppler interrogation. (Of note, ureteral jets may not be detectable in up to 25% of cases due to insu fficient differences in specific gravity between ureteral and bladder urine). Prostate is enlarged m easuring 26.5 cc. Miscellaneous: No free abdominal fluid. IMPRESSION: 1. A 2.6 x 2.5 x 2.0 cm simple cyst in right kidney. 2. Mild cortical thinning and increased renal cortical echotexture bilaterally. No hydronephrosis. 3. Enlarged prostate with increased post void residual in bladder, suggesting bladder ultrasound obst ruction. Reviewed by: Alvaro Harmon MD on 07/05/2022 12:47 PM AK Approved by: Alvaro Harmon MD on 07/05/2022 12:47 PM AK Station ID: [id number]
== END 2022-07-05 11:36 | disposition home or self-care (01) ==
LOC: DI 11:35
PROVIDERS: ATTEND Internal Medicine Nephrology
DX: N18.4 Chronic kidney disease, stage 4 (severe) (principal); N28.1 Cyst of kidney, acquired; N40.0 Benign prostatic hyperplasia without lower urinary tract symptoms

== ENCOUNTER 2023-09-02 08:00 | Outpatient (CLI) | payer MEDICARE | END 2023-09-02 23:59 | disposition home or self-care (01) | LOC: LAB 08:00 | PROVIDERS: ATTEND Internal Medicine | DX: L97.509 Non-pressure chronic ulcer of other part of unspecified foot with unspecified severity (principal) | CPT/HCPCS: 87070; 87077; 87181; 87205 ==

== ENCOUNTER 2023-09-17 09:25 | Outpatient (CLI) | payer MEDICARE ==
--- NOTE | 2023-09-17 18:15 | Ultrasound Report ---
PROCEDURE: Arterial Duplex Lwr Ext BL INDICATIONS: FOOT ULCER TECHNIQUE: Color and pulse Doppler interrogation was performed of both lower extremity arterial systems, with im age documentation. COMPARISON: None FINDINGS: Right lower extremity: Common femoral artery: 56 cm/sec, with monophasic flow. Deep femoral artery: 76 cm/sec, with biphasic flow. Proximal superficial femoral artery: 41 cm/sec, with monophasic flow. Mid superficial femoral artery: 47 cm/sec, with monophasic flow. Distal superficial femoral artery: 23 cm/sec, with monophasic flow. Popliteal artery: 29 cm/sec, with monophasic flow. Posterior tibial artery: 13 cm/sec, with monophasic flow. Anterior tibial artery/dorsalis pedis: 32/17 cm/sec, with biphasic/monophasic flow. Arroyo-scale imaging description: Moderate atherosclerotic plaque is seen throughout right lower extre mity arteries. Left lower extremity: Common femoral artery: 62 cm/sec, with monophasic flow. Deep femoral artery: 21 cm/sec, with monophasic flow. Proximal superficial femoral artery: 11 cm/sec, with monophasic flow. Mid superficial femoral artery: 59 cm/sec, with monophasic flow. Distal superficial femoral artery: 49 cm/sec, with monophasic flow. Popliteal artery: 50 cm/sec, with monophasic flow. Posterior tibial artery: 59 cm/sec, with monophasic flow. Anterior tibial artery/dorsalis pedis: 51/39 cm/sec, with monophasic flow. Arroyo-scale imaging description: Extensive atherosclerotic plaques are noted throughout left lower ex tremity arteries with significant near occluding plaque seen involving proximal to midportion of left superficial femoral artery. IMPRESSION: 1. Extensive atherosclerotic disease throughout bilateral lower extremity arteries with high-grade st enosis/near complete occlusion involving proximal to mid left superficial femoral artery. 2. Suggestion of hemodynamically significant stenosis involving the arteries proximal to bilateral co mmon femoral arteries likely involving distal abdominal aorta/iliac arteries. Reviewed by: Tomás Cristobal MD on 09/17/2023 6:13 PM PDT Approved by: Tomás Cristobal MD on 09/17/2023 6:13 PM PDT Station ID: [id number]
== END 2023-09-17 09:26 | disposition home or self-care (01) ==
LOC: DI 09:25
PROVIDERS: ATTEND Internal Medicine
DX: I70.203 Unspecified atherosclerosis of native arteries of extremities, bilateral legs (principal)
CPT/HCPCS: 93925

== ENCOUNTER 2023-10-12 13:26 | Outpatient (CLI) | payer MEDICARE ==
[2023-10-12 20:27] LABS: BASOPHILS # (AUTO) 0.1 10^3/uL (0.0-0.1); BASOPHILS % (AUTO) 0.8 %; EOSINOPHILS # (AUTO) 0.1 10^3/uL (0.0-0.7); EOSINOPHILS % (AUTO) 0.8 %; HCT - HEMATOCRIT 42.7 % (42.0-52.0); HGB - HEMOGLOBIN 13.7 g/dL (14.0-18.0); LYMPHOCYTES # (AUTO) 1.6 10^3/uL (1.5-3.5); LYMPHOCYTES % (AUTO) 10.5 %; MEAN CORPUSCULAR HEMOGLOBIN 31.4 pg (27.0-31.0); MEAN CORPUSCULAR HGB CONC 32.1 g/dL (32.0-36.0); MEAN CORPUSCULAR VOLUME 97.9 fL (80.0-94.0); MEAN PLATELET VOLUME 9.5 fL (7.4-11.4); MONOCYTES # (AUTO) 1.1 10^3/uL (0.0-1.0); NEUTROPHILS # (AUTO) 12.5 10^3/uL (1.5-6.6); NEUTROPHILS % (AUTO) 80.5 %; PLT - PLATELET COUNT 608 10^3/uL (130-450); RED BLOOD COUNT 4.36 10^6/uL (4.70-6.10); RED CELL DISTRIBUTION WIDTH 13.9 % (12.0-15.0); WHITE BLOOD COUNT 15.5 x10^3/uL (4.8-10.8)
[2023-10-12 20:37] LABS: ALBUMIN 3.5 g/dL (3.2-5.5); ALBUMIN/GLOBULIN RATIO 0.9 (1.0-2.2); ALKALINE PHOSPHATASE 71 IU/L (42-121); ALT ALANINE AMINOTRANSFERASE 24 IU/L (10-60); AST ASPARTATE AMINOTRANSFERASE 25 IU/L (10-42); BILIRUBIN,TOTAL 0.6 mg/dL (0.2-1.0); BUN - BLOOD UREA NITROGEN 43 mg/dL (6-20); CARBON DIOXIDE - CO2 21 mmol/L (21-32); CHLORIDE 106 mmol/L (101-111); CHOLESTEROL 199 mg/dL; GFR - MDRD 33 (>89); GLUCOSE 147 mg/dL (74-104); HDL CHOLESTEROL 33 mg/dL; LDL CHOLESTEROL,CALCULATED 124 mg/dL; LDL/HDL RATIO 3.8 (<3.6); POTASSIUM 4.9 mmol/L (3.5-4.5); SODIUM 138 mmol/L (135-145); TOTAL PROTEIN 7.6 g/dL (6.4-8.9); TRIGLYCERIDES 210 mg/dL (48-352); VLDL CHOLESTEROL 42 mg/dL
== END 2023-10-12 13:27 | disposition home or self-care (01) ==
LOC: LAB.S 13:26
PROVIDERS: ATTEND Internal Medicine
DX: Z13.228 Encounter for screening for other metabolic disorders (principal); E78.5 Hyperlipidemia, unspecified; Z13.0 Encounter for screening for diseases of the blood and blood-forming organs and certain disorders involving the immune mechanism
CPT/HCPCS: 36415; 80053; 80061; 83721; 85025

== ENCOUNTER 2023-10-24 14:51 | Outpatient (CLI) | payer MEDICARE ==
--- NOTE | 2023-10-24 15:27 | XRAY Report ---
PROCEDURE: Foot 3+V LT INDICATIONS: OSTEOMYELITIS TECHNIQUE: 3 views of the foot were acquired. COMPARISON: None. FINDINGS: Bones: There is erosive appearance with bony destruction of the distal aspect of the first metatarsal . Similar appearance although to a lesser degree is noted in the proximal aspect of the first proxima l phalanx. Overlying soft tissue defect is identified suggestive of ulcer. There is deformity of the distal tuft of the first distal phalanx. Soft tissues: No tibiotalar joint effusion. Achilles tendon appears normal. IMPRESSION: Areas of osseous destruction most prominently within the first metatarsal and proximal phalanx as abo ve highly suggestive of osteomyelitis given overlying soft tissue abnormality. Mild deformity of the distal tuft of the first distal phalanx possibly also related to infection/inflammation. Reviewed by: Bobbi Gregory MD on 10/24/2023 3:26 PM PDT Approved by: Bobbi Gregory MD on 10/24/2023 3:26 PM PDT Station ID: [id number]
== END 2023-10-24 14:52 | disposition home or self-care (01) ==
LOC: DI 14:51
PROVIDERS: ATTEND Family Medicine
DX: M86.172 Other acute osteomyelitis, left ankle and foot (principal); L97.524 Non-pressure chronic ulcer of other part of left foot with necrosis of bone; I73.9 Peripheral vascular disease, unspecified

== ENCOUNTER 2023-10-26 09:19 | Day surgery (SDC) | payer MEDICARE ==
[2023-10-26 09:47] VITALS: BP 136/54; O2SAT 93
--- NOTE | 2023-10-26 10:26 | ANESTHESIA PROCEDURE NOTE ---
Anesth Central Line Template - Central Line Central Line Preparation: Consent Obtained, Time out completed, Ultrasound used, Sterile prep and drape Central line location: Right Basilic Central line catheter tip site resides: Superior vena cava (SVC) Central line aftercare: Secured, Placement confirmed, No complications, Bundle checklist complete, Pt tolerated well Other Info/Details: Cath cut at 42, threaded to hub, secured. Easily aspirates and flushes with cap.
--- NOTE | 2023-10-26 10:32 | XRAY Report ---
PROCEDURE: Chest for Line Placement INDICATIONS: PICC line placement TECHNIQUE: One view of the chest was acquired. COMPARISON: None. FINDINGS: Surgical changes and devices: Right upper extremity PICC tip projects over the cavoatrial junction. Lungs and pleura: No pleural effusions or pneumothorax. Lungs are clear. Mediastinum: Mediastinal contours appear normal. Heart size is normal. Bones and chest wall: No suspicious bony lesions. Overlying soft tissues appear unremarkable. IMPRESSION: PICC tip projects over the cavoatrial junction. Reviewed by: Orville Frost MD on 10/26/2023 10:31 AM PDT Approved by: Orville Frost MD on 10/26/2023 10:31 AM PDT Station ID: [id number]
--- NOTE | 2023-10-26 19:17 | WOUND CARE PROGRESS NOTE ---
Assessment/Plan - Home Meds/Allergies Allergies No Known Drug Allergies Allergy (Verified 10/26/23 13:31)
== END 2023-10-26 09:20 | disposition home or self-care (01) ==
LOC: SDS 09:19
PROVIDERS: ATTEND Registered Nurse
DX: M86.172 Other acute osteomyelitis, left ankle and foot (principal)
CPT/HCPCS: 36569; C1751